=== PATIENT | male | born 1935 | race Caucasian/White ===

== ENCOUNTER 2016-12-18 11:30 | Inpatient (IN) | payer MEDICARE, BC ==
--- NOTE | 2016-12-18 12:25 | EDM.PDOC ---
ED HPI GENERAL MEDICAL PROBLEM - General Chief Complaint: General Stated Complaint: PAIN ABOVE HIS HEART Time Seen by Provider: 12/18/16 12:09 Source of Information: Reports: Patient, Family, RN Notes Reviewed History Limitations: Reports: No Limitations - History of Present Illness INITIAL COMMENTS - FREE TEXT/NARRATIVE: 81-year-old gentleman presents to the emergency department today with complaint of left shoulder pain/chest pain, he states been pain has been going on for the last 2-3 weeks it has remained constant nature when he is at rest he has no pain the pain is exacerbated by position and with a deep breath, he has not tried anything to alleviate the pain he describes it as a sharp pain may be 6 out of 10 abdominal resolved to 0 Left Chest Pain Score (Numeric/FACES): 4 - Related Data Allergies Allergy/AdvReac Type Severity Reaction Status Date / Time No Known Allergies Allergy Verified 12/18/16 11:51 Home Meds: Home Meds NK [No Known Home Meds] 12/18/16 [History] Past Medical History HEENT History: Reports: Hard of Hearing, Impaired Vision Musculoskeletal History: Reports: Other (See Below) Other Musculoskeletal History: facial bones Neurological History: Reports: Alzheimers Disease, Concussion Psychiatric History: Reports: Alzheimers Disease, Anxiety, Depression - Infectious Disease History Infectious Disease History: Reports: Chicken Pox, Measles, Shingles Social & Family History - Tobacco Use Smoking Status *Q: Former Smoker Years of Tobacco use: 15 Packs/Tins Daily: 1 Used Tobacco, but Quit: Yes Month Tobacco Last Used: August Second Hand Smoke Exposure: No - Caffeine Use Caffeine Use: Reports: Coffee, Soda - Alcohol Use Days Per Week of Alcohol Use: 0 - Recreational Drug Use Recreational Drug Use: No ED ROS GENERAL - Review of Systems Review Of Systems: See Below Constitutional: Reports: No Symptoms HEENT: Reports: No Symptoms Respiratory: Reports: No Symptoms Cardiovascular: Reports: Chest Pain (Only with deep breath) GI/Abdominal: Reports: No Symptoms : Reports: No Symptoms Musculoskeletal: Reports: No Symptoms Skin: Reports: No Symptoms Neurological: Reports: No Symptoms Psychiatric: Reports: No Symptoms ED EXAM, GENERAL - Physical Exam Exam: See Below Free Text/Narrative:: General: Male, not in any distress, alert and oriented x3 HEENT: head is atraumatic normocephalic, eyes pupils equal round reactive to light, sclera clear no conjunctivitis appreciated. Ears blocked by cerumen bilaterally canals are clear. Nose no septal deviation, nares are clear, no blood present. Mouth mucosa is moist and pink no erythema or exudate noted in soft palate, tongue is midline uvula is midline, dentures in place. Neck: Supple no thyromegaly no tracheal deviation. Nodes: Cervical nodes subclavicular nodes nontender no palpable lymphadenopathy noted. Lungs: clear to auscultation bilaterally with symmetrical respirations, no adventitious noise appreciated. CV: Regular rate and rhythm S1 and S2 appreciated no murmurs rubs or gallops noted., Chest no tenderness to palpation, cannot reproduce the pain by arm movement, however pain is reproduced with deep breath Abdomen: Soft, nontender, no palpable masses or organomegaly appreciated, no distention no guarding bowel sounds are present,. Neuro: Cranial nerves II through XII grossly intact Skin: Warm and dry, intact Extremities: No lower extremity edema appreciated, Course - Vital Signs Last Recorded V/S: Last Vital Signs Temp 98.8 F 12/18/16 13:25 Pulse 86 12/18/16 13:25 Resp 16 12/18/16 13:25 BP 141/91 H 12/18/16 13:25 Pulse Ox 91 L 12/18/16 13:25 - Orders/Labs/Meds Orders: Active Orders 24 hr Category Date Time Status Cardiac Monitoring [RC] .As Directed Care 12/18/16 12:18 Active EKG Documentation Completion [RC] ASDIRECTED Care 12/18/16 12:18 Active Peripheral IV Care [RC] . DIRECTED Care 12/18/16 13:58 Active VL Duplex Lwr Ext Veins Comp [US] Stat Exams 12/18/16 15:10 Ordered INR,PT,PROTHROMBIN TIME [COAG] Routine Lab 12/18/16 15:11 Ordered Heparin Sodium/D5W [Heparin 25,000 Units in D5W 500 ML] Med 12/18/16 15:15 Ordered 25,000 units in 500 ml IV TITRATE Heparin Sodium/D5W [Heparin 25,000 Units in D5W 500 ML] Med 12/18/16 15:15 Ordered 25,000 units in 500 ml IV TITRATE Sodium Chloride 0.9% [Normal Saline] 1,000 ml Med 12/18/16 14:00 Active IV ASDIRECTED Sodium Chloride 0.9% [Saline Flush] Med 12/18/16 13:58 Active 10 ml FLUSH ASDIRECTED PRN Peripheral IV Insertion Adult [OM.PC] Urgent Oth 12/18/16 13:58 Ordered EKG 12 Lead [EK] Stat Ther 12/18/16 12:18 Ordered Medication Orders Sodium Chloride (Normal Saline) 1,000 mls @ 500 mls/hr IV ASDIRECTED WINDY Last Admin: 12/18/16 14:09 Dose: 500 mls/hr Heparin Sodium/Dextrose (Heparin 25,000 Units In D5w 500 Ml) 25,000 units in 500 mls @ 0 mls/hr IV TITRATE WINDY; 18 UNITS/KG/HR PRN Reason: Protocol Heparin Sodium/Dextrose (Heparin 25,000 Units In D5w 500 Ml) 25,000 units in 500 mls @ 0 mls/hr IV TITRATE WINDY; KVO PRN Reason: Protocol Sodium Chloride (Saline Flush) 10 ml FLUSH ASDIRECTED PRN PRN Reason: Keep Vein Open Labs: Laboratory Tests 12/18/16 12/18/16 Range/Units 12:25 12:25 WBC 11.3 H (4.5-11.0) K/uL RBC 5.31 (4.30-5.90) M/uL Hgb 15.6 H (12.0-15.0) g/dL Hct 47.0 (40.0-54.0) % MCV 89 (80-98) fL MCH 29 (27-31) pg MCHC 33 (32-36) % Plt Count 243 (150-400) K/uL Neut % (Auto) 75 H (36-66) % Lymph % (Auto) 12 L (24-44) % [place] % (Auto) 12 H (2-6) % Eos % (Auto) 1 L (2-4) % Baso % (Auto) 0 (0-1) % Sodium 137 L (140-148) mmol/L Potassium 4.1 (3.6-5.2) mmol/L Chloride 103 (100-108) mmol/L Carbon Dioxide 26 (21-32) mmol/L Anion Gap 12.1 (5.0-14.0) mmol/L BUN 16 (7-18) mg/dL Creatinine 1.0 (0.8-1.3) mg/dL Est Cr Clr Drug Dosing 54.15 mL/min Estimated GFR (MDRD) > 60 (>60) Glucose 93 (74-106) mg/dL Calcium 8.6 (8.5-10.1) mg/dL Total Bilirubin 1.5 H (0.2-1.0) mg/dL AST 29 (15-37) U/L ALT 35 (12-78) U/L Alkaline Phosphatase 110 (46-116) U/L Troponin I < 0.017 (0.000-0.056) ng/mL Total Protein 7.0 (6.4-8.2) g/dL Albumin 2.8 L (3.4-5.0) g/dL Globulin 4.2 H (2.3-3.5) g/dL Albumin/Globulin Ratio 0.7 L (1.2-2.2) Meds: Medications Generic Name Dose Route Start Last Admin Trade Name Freq PRN Reason Stop Dose Admin Sodium Chloride 1,000 mls @ 500 mls/hr 12/18/16 14:00 12/18/16 14:09 Normal Saline IV 500 mls/hr ASDIRECTED WINDY Administration Heparin Sodium/Dextrose 25,000 units in 500 mls @ 0 mls/hr 12/18/16 15:15 Heparin 25,000 Units In D5w 500 Ml IV TITRATE WINDY Protocol 18 UNITS/KG/HR Heparin Sodium/Dextrose 25,000 units in 500 mls @ 0 mls/hr 12/18/16 15:15 Heparin 25,000 Units In D5w 500 Ml IV TITRATE WINDY Protocol KVO Sodium Chloride 10 ml 12/18/16 13:58 Saline Flush FLUSH ASDIRECTED PRN Keep Vein Open Discontinued Medications Generic Name Dose Route Start Last Admin Trade Name Freq PRN Reason Stop Dose Admin Heparin Sodium (Porcine) 4,000 units 12/18/16 15:10 Heparin Sodium IVPUSH 12/18/16 15:11 ONETIME ONE Sodium Chloride 75 mls @ 3 mls/sec 12/18/16 14:15 12/18/16 14:18 Normal Saline IV 12/18/16 15:00 3 mls/sec ASDIRECTED WINDY Administration Iopamidol 100 ml 12/18/16 14:06 12/18/16 14:18 Isovue-300 (61%) IV 12/18/16 15:00 100 ml . DIRECTED PRN Administration RADIOLOGY EXAM Warfarin Sodium 5 mg 12/18/16 15:10 Coumadin PO 12/18/16 15:11 ONETIME ONE Departure - Departure Time of Disposition: 15:17 Disposition: Admitted As Inpatient 64 Clinical Impression: Bilateral pulmonary embolism - Discharge Information Referrals: PCP,None [Primary Care Provider] - Forms: ED Department Discharge - My Orders Last 24 Hours: My Active Orders 12/18/16 12:18 Cardiac Monitoring [RC] .As Directed EKG Documentation Completion [RC] ASDIRECTED EKG 12 Lead [EK] Stat 12/18/16 13:58 Peripheral IV Care [RC] . DIRECTED Sodium Chloride 0.9% [Saline Flush] 10 ml FLUSH ASDIRECTED PRN Peripheral IV Insertion Adult [OM.PC] Urgent 12/18/16 14:00 Sodium Chloride 0.9% [Normal Saline] 1,000 ml IV ASDIRECTED 12/18/16 15:10 VL Duplex Lwr Ext Veins Comp [US] Stat 12/18/16 15:11 INR,PT,PROTHROMBIN TIME [COAG] Routine 12/18/16 15:15 Heparin Sodium/D5W [Heparin 25,000 Units in D5W 500 ML] 25,000 units in 500 ml IV TITRATE - Assessment/Plan Last 24 Hours: My Active Orders 12/18/16 12:18 Cardiac Monitoring [RC] .As Directed EKG Documentation Completion [RC] ASDIRECTED EKG 12 Lead [EK] Stat 12/18/16 13:58 Peripheral IV Care [RC] . DIRECTED Sodium Chloride 0.9% [Saline Flush] 10 ml FLUSH ASDIRECTED PRN Peripheral IV Insertion Adult [OM.PC] Urgent 12/18/16 14:00 Sodium Chloride 0.9% [Normal Saline] 1,000 ml IV ASDIRECTED 12/18/16 15:10 VL Duplex Lwr Ext Veins Comp [US] Stat 12/18/16 15:11 INR,PT,PROTHROMBIN TIME [COAG] Routine 12/18/16 15:15 Heparin Sodium/D5W [Heparin 25,000 Units in D5W 500 ML] 25,000 units in 500 ml IV TITRATE Plan: Assessment Acuity = acute Site and laterality = bilateral pulmonary embolism Etiology = unclear etiology Manifestations = inspiratory chest pain Location of injury = Home Lab values = 6 WBC elevated 11.3 consistent with leukocytosis sodium low at 137 consistent hyponatremia total bilirubin elevated 1.5 consistent hyperbilirubinemia albumin low at 2.[address] scan shows bilateral pulmonary embolism please see report for details EKG demonstrates a sinus rhythm with left axis deviation Plan Called and discussed case with hospitalist cost reduction engineer he agreed to, and evaluate the patient in the emergency department for admission, heparin warfarin started in the ED ultrasound of lower extremities also ordered Patient was in agreement with the plan all questions were answered, they were instructed to return to the emergency department or call for worsening symptoms. This note was dictated using [employer] voice recognition software please call with any questions.
--- NOTE | 2016-12-18 13:47 | CR ---
Chest 2V HISTORY: Chest Pain COMPARISON: None FINDINGS: Lungs appear clear and normally aerated. Heart size is within normal limits. Atherosclerotic, ectatic , mildly tortuous thoracic aorta is noted. Apparent fullness to the left hilum seen on the PA view is not appreciated on the lateral view and may represent artifact from superimposition with the ectatic descending thoracic aorta. No vascular redistribution or pleural fluid can be seen. There are mild d egenerative changes thoracic spine.. IMPRESSION: Questionable fullness to the left hilum seen only on the PA view may be artifact due to superimpositi on of hilar structures with ectatic, tortuous descending thoracic aorta. Hilar mass or adenopathy is felt to be less likely but cannot be entirely excluded. Further workup is desired, contrasted CT ches t could be obtained.
[2016-12-18] MEDS ORDERED: Sodium Chloride 0.9% 10 ML Syringe FLUSH PRN ×2 (13:58→16:54)
[2016-12-18] MEDS ORDERED: Sodium Chloride 0.9% 1,000 ML IV SCH ×2 (14:00→16:54)
[2016-12-18] MEDS ORDERED: Iopamidol 612 MG/ML 100 ML Bottle IV PRN (14:06)
[2016-12-18] MEDS ORDERED: Sodium Chloride 0.9% 75 ML IV SCH (14:15)
--- NOTE | 2016-12-18 14:45 | CT ---
Chest w Cont HISTORY: Enlarged hilar area on x-ray Axial spiral enhanced CT scan of the chest was obtained along with sagittal, coronal, and MIP coronal reconstructions. FINDINGS: Filling defect in the distal left main pulmonary artery is consistent with moderate pulmona ry was. Embolus extends into the proximal left lingular pulmonary arteries. There is also a fairly pr ominent embolus left lower lobe. There is atelectasis of the posterior medial aspect left lower lobe distal to this embolus. On the right, pulmonary emboli can be seen in the distal main pulmonary arter y extending into the proximal right upper and middle lobe pulmonary arteries. Mild infiltrates are seen posterior left upper lobe. Early pulmonary infarct is not excluded. This co uld also be atelectasis or early inflammatory infiltrate right lung is clear. There is mild dependent atelectasis posteriorly at both lower lobes. Heart size is within normal limits. I see no hilar or m ediastinal mass or adenopathy. In the upper abdomen, attenuation of the liver is mildly decreased diffusely suggesting fatty infiltr ation. Small cysts can be seen on the left kidney. Left adrenal gland appears normal. There is enlarg ement of the right adrenal gland with possible small low-attenuation adrenal nodule. There is a punct ate calcification right adrenal gland. IMPRESSION: 1. Prominent central pulmonary emboli bilaterally. Possible early pulmonary infarct posterior left up per lobe. There is probable atelectasis posterior medial left lower lobe. 2. Atherosclerotic, tortuous thoracic aorta. No signs of thoracic aortic aneurysm or dissection. 3. Probable fatty infiltration of the liver. 4. Small left renal cysts. 5. Right adrenal nodule is noted. Appearance is indeterminate. This may represent an adrenal adenoma. CT scan of the adrenal glands using adrenal washout protocol could be obtained to further evaluate o n a nonemergent basis. Findings were discussed Officer in the Emergency Department at 1430 hours. Total DLP 325 mGycm
[2016-12-18] MEDS ORDERED: Heparin Sodium 5,000 Units/ML Vial IVPUSH ONE (15:10)
[2016-12-18] MEDS ORDERED: Warfarin 5 MG Tab PO ONE (15:10)
[2016-12-18] MEDS ORDERED: Heparin Sodium/D5W 25,000 UNITS/500 ML BAG IV SCH (15:15)
[2016-12-18] MEDS: Heparin Sodium/D5W 25,000 UNITS/500 ML BAG IV SCH (15:37)
--- NOTE | 2016-12-18 16:22 | PCM.HP ---
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 He apparently was doing well until this morning when he noted onset of pleuritic pain in his left upper chest. Pain was very intense and sharp in nature and would occur with a deep breath. Seem to be worse after he bent over to tie his shoes and set up when he noted more severe pain. There are no other precipitating or relieving factors. On evaluation in the emergency department hilar fullness was noted on chest x-ray some CT scan was obtained. CT scan with PE protocol showed evidence of bilateral pulmonary emboli and a probable area pulmonary infarct in the left lung. Left Chest Pain Score (Numeric/FACES): 4 - Related Data Allergies/Adverse Reactions: Allergies Allergy/AdvReac Type Severity Reaction Status Date / Time No Known Allergies Allergy Verified 12/18/16 11:51 Home Medications: Home Meds NK [No Known Home Meds] 12/18/16 [History] Past Medical History HEENT History: Reports: Hard of Hearing, Impaired Vision Musculoskeletal History: Reports: Other (See Below) Other Musculoskeletal History: facial bones Neurological History: Reports: Alzheimers Disease, Concussion Psychiatric History: Reports: Alzheimers Disease, Anxiety, Depression - Infectious Disease History Infectious Disease History: Reports: Chicken Pox, Measles, Shingles Social & Family History - Tobacco Use Smoking Status *Q: Former Smoker Years of Tobacco use: 15 Packs/Tins Daily: 1 Used Tobacco, but Quit: Yes Month Tobacco Last Used: August Second Hand Smoke Exposure: No - Caffeine Use Caffeine Use: Reports: Coffee, Soda - Alcohol Use Days Per Week of Alcohol Use: 0 - Recreational Drug Use Recreational Drug Use: No H&P Review of Systems - Review of Systems: Review Of Systems: Unable To Obtain General: Reports: ROS unobtainable (Dementia) Exam - Exam Exam: See Below - Vital Signs Vital Signs: Last Vital Signs Temp 98.8 F 12/18/16 13:25 Pulse 86 12/18/16 13:25 Resp 16 12/18/16 13:25 BP 141/91 H 12/18/16 13:25 Pulse Ox 91 L 12/18/16 13:25 Weight: 172 lb 6.424 oz - Exam Quality Assessment: DVT Prophylaxis General: Alert, Cooperative, Mild Distress HEENT: Conjunctiva Clear, Mucosa Moist & [place], Normal Nasal Septum, Posterior Pharynx Clear, Pupils Equal. No: Hearing Intact Neck: Supple, Trachea Midline, +2 Carotid Pulse wo Bruit Lungs: Clear to Auscultation, Normal Respiratory Effort. No: Rub Cardiovascular: Regular Rate, Regular Rhythm, Normal S1, Normal S2. No: Systolic Murmur, Diastolic Murmur GI/Abdominal Exam: Normal Bowel Sounds, Soft, Non-Tender, No Distention Back Exam: Normal Inspection, Full Range of Motion Extremities: Non-Tender, No Pedal Edema Skin: Warm, Dry, Intact Neurological: Cranial Nerves Intact, Strength Equal Bilateral, Normal Speech, Normal Tone, Sensation Intact. No: Focal Deficit Neuro Extensive - Mental Status: Alert, Normal Mood/Affect, Disorientation to Time, Memory Loss-Remote Events, Memory Loss-Recent Events. No: Disorientation to Person, Disorientation to Place - Patient Data Result Diagrams: 12/18/16 12:25 12/18/16 12:25 *Q Meaningful Use (ADM) - VTE *Q VTE Criteria *Q: VTE Pharmacological Contraindications *Q: High INR Value - VTE Risk Assess *Q Each Risk Factor Represents 1 Point: None Total Score 1 Point Risk Factors: 0 Each Risk Factor Represents 2 Points: None Total Score 2 Point Risk Factors: 0 Each Risk Factor Represents 3 Points: Age 75 Years or Greater, History Superficial Venous Thrombosis, DVT or PE Total Score 3 Point Risk Factors: 6 Each Risk Factor Represents 5 Points: None Total Score 5 Point Risk Factors: 0 Venous Thromboembolism Risk Factor Score *Q: 6 - Stroke *Q Stroke Criteria *Q: - AMI *Q AMI Criteria *Q: Problem List Initiated/Reviewed/Updated: Yes Orders Last 24hrs: Active Orders 24 hr Category Date Time Status Resuscitation Status Routine Resus Stat 12/18/16 15:31 Ordered Medication Orders Sodium Chloride (Normal Saline) 1,000 mls @ 500 mls/hr IV ASDIRECTED WINDY Last Admin: 12/18/16 14:09 Dose: 500 mls/hr Heparin Sodium/Dextrose (Heparin 25,000 Units In D5w 500 Ml) 25,000 units in 500 mls @ 0 mls/hr IV TITRATE WINDY; 18 UNITS/KG/HR PRN Reason: Protocol Last Admin: 12/18/16 15:37 Dose: 16.62 units/kg/hr, 26 mls/hr Sodium Chloride (Saline Flush) 10 ml FLUSH ASDIRECTED PRN PRN Reason: Keep Vein Open Assessment/Plan Comment:: ASSESSMENT AND PLAN BILATERAL CENTRAL PULMONARY EMBOLI-main symptom associated with this his pleuritic chest pain, he denies significant shortness of breath in his oxygenation has been adequate. There is been no recent prolonged periods of immobility and he has no previous history of thrombotic disease. No family history of coagulation abnormalities. He is hemodynamically stable, with no evidence of significant right heart failure. -Anticoagulation with IV heparin -Initiate warfarin therapy -INR in a.m. 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 At the time of this admission I do not reasonably expected evaluation and management of this problem will require more than a 96 hour hospital stay. DISPOSITION-anticipate discharge to home after the hospital stay. PRIMARY CARE PROVIDER-
[2016-12-18] MEDS ORDERED: Magnesium Hydroxide 400 MG/5 ML Susp 30 ML Cup PO PRN (16:54)
[2016-12-18] MEDS ORDERED: Acetaminophen 325 MG Tab PO PRN (16:54)
[2016-12-18] MEDS ORDERED: Ondansetron 4 MG/2 ML SDV IV PRN (16:54)
[2016-12-18] MEDS ORDERED: oxyCODONE 5 MG Tab PO PRN (16:54)
[2016-12-18] MEDS ORDERED: Albuterol 0.083% 2.5 MG/3 ML Neb Soln NEB PRN (16:54)
[2016-12-18] MEDS: Melatonin 3 MG Tab PO SCH ×2 (17:48→21:09)
--- NOTE | 2016-12-19 08:50 | US ---
VL Duplex Lwr Ext Veins Comp HISTORY: chantal PE FINDINGS: Right leg demonstrates lack of blood flow and noncompressibility in the mid to distal femoral vein an d in the popliteal vein consistent with DVT. No thrombus is seen throughout the remainder of the righ t leg. Left leg demonstrates lack of blood flow and noncompressibility in the common femoral vein and proxim al femoral vein consistent with DVT. No thrombus is seen in the remainder of the left lower extremity . IMPRESSION: Bilateral lower extremity deep venous thrombosis as above. Preliminary report was given t o the emergency department at the time of the exam.
--- NOTE | 2016-12-19 09:43 | PCM.PN ---
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 No difficulty thus far with oxygenation, saturations are good on room air. He reports that his chest pain is totally resolved and denies significant discomfort. - Patient Data Vitals - Most Recent: Last Vital Signs Temp 97.2 F 12/19/16 08:00 Pulse 73 12/19/16 08:00 Resp 24 H 12/19/16 08:00 BP 123/85 12/19/16 08:00 Pulse Ox 92 L 12/19/16 08:00 Weight - Most Recent: 178 lb 14.411 oz I&O - Last 24 Hours: Intake & Output 12/18/16 12/19/16 12/19/16 22:59 06:59 14:59 Intake Total 650 1338 480 Output Total 150 200 Balance 500 1138 480 Lab Results Last 24 Hours: Laboratory Results - last 24 hr 12/18/16 12/19/16 12/19/16 Range/Units 22:05 04:50 04:57 WBC 8.9 (4.5-11.0) K/uL RBC 4.61 (4.30-5.90) M/uL Hgb 13.6 D (12.0-15.0) g/dL Hct 40.8 (40.0-54.0) % MCV 89 (80-98) fL MCH 30 (27-31) pg MCHC 33 (32-36) % Plt Count 229 (150-400) K/uL Neut % (Auto) 68 H (36-66) % Lymph % (Auto) 16 L (24-44) % [place] % (Auto) 14 H (2-6) % Eos % (Auto) 2 (2-4) % Baso % (Auto) 0 (0-1) % PT (9.5-12.0) sec INR (0.80-1.20) APTT 53.3 H 53.4 H (27.0-36.0) sec Sodium (140-148) mmol/L Potassium (3.6-5.2) mmol/L Chloride (100-108) mmol/L Carbon Dioxide (21-32) mmol/L Anion Gap (5.0-14.0) mmol/L BUN (7-18) mg/dL Creatinine (0.8-1.3) mg/dL Est Cr Clr Drug Dosing Estimated GFR (MDRD) (>60) Glucose (74-106) mg/dL Calcium (8.5-10.1) mg/dL Magnesium (1.8-2.4) mg/dL 12/19/16 12/19/16 Range/Units 04:57 04:57 WBC (4.5-11.0) K/uL RBC (4.30-5.90) M/uL Hgb (12.0-15.0) g/dL Hct (40.0-54.0) % MCV (80-98) fL MCH (27-31) pg MCHC (32-36) % Plt Count (150-400) K/uL Neut % (Auto) (36-66) % Lymph % (Auto) (24-44) % [place] % (Auto) (2-6) % Eos % (Auto) (2-4) % Baso % (Auto) (0-1) % PT 11.5 (9.5-12.0) sec INR 1.07 (0.80-1.20) APTT (27.0-36.0) sec Sodium 139 L (140-148) mmol/L Potassium 3.7 (3.6-5.2) mmol/L Chloride 106 (100-108) mmol/L Carbon Dioxide 25 (21-32) mmol/L Anion Gap 11.7 (5.0-14.0) mmol/L BUN 16 (7-18) mg/dL Creatinine 0.8 (0.8-1.3) mg/dL Est Cr Clr Drug Dosing TNP Estimated GFR (MDRD) > 60 (>60) Glucose 97 (74-106) mg/dL Calcium 7.8 L (8.5-10.1) mg/dL Magnesium 1.9 (1.8-2.4) mg/dL Med Orders - Current: Current Medications Acetaminophen (Tylenol) 650 mg PO Q4H PRN PRN Reason: Pain (Mild 1-3)/fever Albuterol (Proventil Neb Soln) 2.5 mg NEB Q4H PRN PRN Reason: Shortness Of Breath/wheezing Docusate Sodium (Colace) 100 mg PO BID PRN PRN Reason: Constipation Heparin Sodium/Dextrose (Heparin 25,000 Units In D5w 500 Ml) 25,000 units in 500 mls @ 0 mls/hr IV TITRATE WINDY; 18 UNITS/KG/HR PRN Reason: Protocol Last Admin: 12/18/16 15:37 Dose: 16.62 units/kg/hr, 26 mls/hr Magnesium Hydroxide (Milk Of Magnesia) 30 ml PO Q12H PRN PRN Reason: Constipation Melatonin (Melatonin) 9 mg PO BEDTIME WINDY Last Admin: 12/18/16 21:09 Dose: 9 mg Ondansetron HCl (Zofran) 4 mg IV Q4H PRN PRN Reason: Nausea/Vomiting Oxycodone HCl (Oxycodone) 5 mg PO Q4H PRN PRN Reason: Pain (moderate 4-6) Polyethylene Glycol (Miralax) 17 gm PO DAILY PRN PRN Reason: Constipation Sodium Chloride (Saline Flush) 10 ml FLUSH ASDIRECTED PRN PRN Reason: Keep Vein Open Warfarin Sodium (Coumadin) 7.5 mg PO ONETIME ONE Stop: 12/19/16 11:01 Discontinued Medications Heparin Sodium (Porcine) (Heparin Sodium) 4,000 units IVPUSH ONETIME ONE Stop: 12/18/16 15:11 Last Admin: 12/18/16 15:26 Dose: 4,000 units Sodium Chloride (Normal Saline) 1,000 mls @ 500 mls/hr IV ASDIRECTED WINDY Last Admin: 12/18/16 14:09 Dose: 500 mls/hr Sodium Chloride (Normal Saline) 75 mls @ 3 mls/sec IV ASDIRECTED WINDY Stop: 12/18/16 15:00 Last Admin: 12/18/16 14:18 Dose: 3 mls/sec Sodium Chloride (Normal Saline) 1,000 mls @ 75 mls/hr IV ASDIRECTED WINDY Last Admin: 12/19/16 05:49 Dose: 75 mls/hr Iopamidol (Isovue-300 (61%)) 100 ml IV . DIRECTED PRN PRN Reason: RADIOLOGY EXAM Stop: 12/18/16 15:00 Last Admin: 12/18/16 14:18 Dose: 100 ml Sodium Chloride (Saline Flush) 10 ml FLUSH ASDIRECTED PRN PRN Reason: Keep Vein Open Warfarin Sodium (Coumadin) 5 mg PO ONETIME ONE Stop: 12/18/16 15:11 Last Admin: 12/18/16 15:25 Dose: 5 mg - Exam Quality Assessment: DVT Prophylaxis General: Alert, Cooperative, No Acute Distress Lungs: Clear to Auscultation, Normal Respiratory Effort Cardiovascular: Regular Rate, Regular Rhythm, No Murmurs GI/Abdominal Exam: Normal Bowel Sounds, Soft, Non-Tender, No Organomegaly, No Distention Extremities: Non-Tender, No Pedal Edema Skin: Warm, Dry, Intact - Problem List Review Problem List Initiated/Reviewed/Updated: Yes - My Orders Last 24 Hours: My Active Orders 12/18/16 15:31 Resuscitation Status Routine 12/18/16 16:54 Patient Status [ADT] Routine Intake and Output [RC] QSHIFT Notify Provider Vital Signs [RC] ASDIRECTED Oxygen Therapy [RC] PRN Peripheral IV Care [RC] . DIRECTED RT Aerosol Therapy [RC] ASDIRECTED Up With Assistance [RC] ASDIRECTED Up to Chair [RC] QID Vital Signs [RC] Q4H Acetaminophen [Tylenol] 650 mg PO Q4H PRN Albuterol [Proventil Neb Soln] 2.5 mg NEB Q4H PRN Docusate Sodium [Colace] 100 mg PO BID PRN Magnesium Hydroxide [Milk of Magnesia] 30 ml PO Q12H PRN Melatonin 9 mg PO BEDTIME Ondansetron [Zofran] 4 mg IV Q4H PRN Polyethylene Glycol 3350 [MiraLAX] 17 gm PO DAILY PRN Sodium Chloride 0.9% [Saline Flush] 10 ml FLUSH ASDIRECTED PRN oxyCODONE 5 mg PO Q4H PRN Peripheral IV Insertion Adult [OM.PC] Routine VTE Pharmacological Contraindications [AST] Per Unit Routine 12/18/16 Lunch Regular Diet [DIET] 12/19/16 09:38 Patient Status Manage Transfer [TRANSFER] Routine Convert IV to Saline Lock [OM.PC] Routine 12/19/16 11:00 Warfarin [Coumadin] 7.5 mg PO ONETIME ONE 12/20/16 05:00 CBC WITH AUTO DIFF [HEME] Timed PTT,PARTIAL THROMBOPLSTIN TIME [COAG] Routine 12/20/16 05:11 INR,PT,PROTHROMBIN TIME [COAG] AM - Plan Plan:: ASSESSMENT AND PLAN BILATERAL CENTRAL PULMONARY EMBOLI-third of chest pain has resolved since admission and he has remained hemodynamically stable with good oxygenation. Venous Doppler studies lower extremities documented bilateral DVT. -Anticoagulation with IV heparin -Warfarin 7.5 mg by mouth today -INR in a.m. 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 At the time of this admission I do not reasonably expected evaluation and management of this problem will require more than a 96 hour hospital stay. DISPOSITION-anticipate discharge to home after the hospital stay. PRIMARY CARE PROVIDER-
[2016-12-19] MEDS: Heparin Sodium/D5W 25,000 UNITS/500 ML BAG IV SCH (10:19)
[2016-12-19] MEDS ORDERED: Warfarin 2.5 MG Tab PO ONE (11:00)
[2016-12-19] MEDS: Melatonin 3 MG Tab PO SCH (21:14)
[2016-12-20] MEDS: Heparin Sodium/D5W 25,000 UNITS/500 ML BAG IV SCH (05:42)
[2016-12-20] MEDS: Polyethylene Glycol 3350 Powder 17 GM Packet PO PRN (08:34)
--- NOTE | 2016-12-20 14:37 | PCM.PN ---
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 Vital signs have been stable and he has remained afebrile. - Patient Data Vitals - Most Recent: Last Vital Signs Temp 98.3 F 12/20/16 11:28 Pulse 72 12/20/16 11:28 Resp 16 12/20/16 11:28 BP 129/75 12/20/16 11:28 Pulse Ox 93 L 12/20/16 11:28 Weight - Most Recent: 178 lb 14.411 oz I&O - Last 24 Hours: Intake & Output 12/19/16 12/20/16 12/20/16 22:59 06:59 14:59 Intake Total 1069 580 360 Output Total 385 Balance 1069 195 360 Lab Results Last 24 Hours: Laboratory Results - last 24 hr 12/20/16 12/20/16 12/20/16 Range/Units 05:30 06:00 06:00 WBC 7.6 (4.5-11.0) K/uL RBC 4.66 (4.30-5.90) M/uL Hgb 13.8 (12.0-15.0) g/dL Hct 41.1 (40.0-54.0) % MCV 88 (80-98) fL MCH 30 (27-31) pg MCHC 34 (32-36) % Plt Count 253 (150-400) K/uL Neut % (Auto) 63 (36-66) % Lymph % (Auto) 20 L (24-44) % [place] % (Auto) 12 H (2-6) % Eos % (Auto) 5 H (2-4) % Baso % (Auto) 0 (0-1) % PT 11.9 (9.5-12.0) sec INR 1.11 (0.80-1.20) APTT 54.6 H (27.0-36.0) sec Med Orders - Current: Current Medications Acetaminophen (Tylenol) 650 mg PO Q4H PRN PRN Reason: Pain (Mild 1-3)/fever Albuterol (Proventil Neb Soln) 2.5 mg NEB Q4H PRN PRN Reason: Shortness Of Breath/wheezing Docusate Sodium (Colace) 100 mg PO BID PRN PRN Reason: Constipation Heparin Sodium/Dextrose (Heparin 25,000 Units In D5w 500 Ml) 25,000 units in 500 mls @ 0 mls/hr IV TITRATE WINDY; 18 UNITS/KG/HR PRN Reason: Protocol Last Admin: 12/20/16 05:42 Dose: 16.62 units/kg/hr, 26 mls/hr Magnesium Hydroxide (Milk Of Magnesia) 30 ml PO Q12H PRN PRN Reason: Constipation Melatonin (Melatonin) 9 mg PO BEDTIME WINDY Last Admin: 12/19/16 21:14 Dose: 9 mg Ondansetron HCl (Zofran) 4 mg IV Q4H PRN PRN Reason: Nausea/Vomiting Oxycodone HCl (Oxycodone) 5 mg PO Q4H PRN PRN Reason: Pain (moderate 4-6) Polyethylene Glycol (Miralax) 17 gm PO DAILY PRN PRN Reason: Constipation Last Admin: 12/20/16 08:34 Dose: 17 gm Sodium Chloride (Saline Flush) 10 ml FLUSH ASDIRECTED PRN PRN Reason: Keep Vein Open Discontinued Medications Heparin Sodium (Porcine) (Heparin Sodium) 4,000 units IVPUSH ONETIME ONE Stop: 12/18/16 15:11 Last Admin: 12/18/16 15:26 Dose: 4,000 units Sodium Chloride (Normal Saline) 1,000 mls @ 500 mls/hr IV ASDIRECTED WINDY Last Admin: 12/18/16 14:09 Dose: 500 mls/hr Sodium Chloride (Normal Saline) 75 mls @ 3 mls/sec IV ASDIRECTED WINDY Stop: 12/18/16 15:00 Last Admin: 12/18/16 14:18 Dose: 3 mls/sec Sodium Chloride (Normal Saline) 1,000 mls @ 75 mls/hr IV ASDIRECTED WINDY Last Admin: 12/19/16 05:49 Dose: 75 mls/hr Iopamidol (Isovue-300 (61%)) 100 ml IV . DIRECTED PRN PRN Reason: RADIOLOGY EXAM Stop: 12/18/16 15:00 Last Admin: 12/18/16 14:18 Dose: 100 ml Sodium Chloride (Saline Flush) 10 ml FLUSH ASDIRECTED PRN PRN Reason: Keep Vein Open Warfarin Sodium (Coumadin) 5 mg PO ONETIME ONE Stop: 12/18/16 15:11 Last Admin: 12/18/16 15:25 Dose: 5 mg Warfarin Sodium (Coumadin) 7.5 mg PO ONETIME ONE Stop: 12/19/16 11:01 Last Admin: 12/19/16 10:53 Dose: 7.5 mg - Exam Quality Assessment: DVT Prophylaxis General: Alert, Cooperative, No Acute Distress Lungs: Clear to Auscultation, Normal Respiratory Effort Cardiovascular: Regular Rate, Regular Rhythm, No Murmurs GI/Abdominal Exam: Normal Bowel Sounds, Soft, Non-Tender, No Organomegaly, No Distention Extremities: Non-Tender, No Pedal Edema Skin: Warm, Dry, Intact - Problem List Review Problem List Initiated/Reviewed/Updated: Yes - My Orders Last 24 Hours: My Active Orders 12/20/16 14:33 Warfarin [Coumadin] 10 mg PO ONETIME ONE 12/21/16 05:11 INR,PT,PROTHROMBIN TIME [COAG] AM 12/21/16 06:00 PTT,PARTIAL THROMBOPLSTIN TIME [COAG] Routine - Plan Plan:: ASSESSMENT AND PLAN BILATERAL CENTRAL PULMONARY- pleuritic chest pain has resolved since admission, he denies significant shortness of breath. INR remains subtherapeutic despite 2 days of warfarin -Discontinue IV heparin -Warfarin 10 mg by mouth today -INR in a.m. 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 At the time of this admission I do not reasonably expected evaluation and management of this problem will require more than a 96 hour hospital stay. DISPOSITION-anticipate discharge to home tomorrow PRIMARY CARE PROVIDER-
[2016-12-20] MEDS ORDERED: Enoxaparin 80 MG/0.8 ML Syringe SUBCUT SCH ×2 (14:45)
[2016-12-20] MEDS ORDERED: Warfarin 5 MG Tab PO ONE (15:00)
[2016-12-20] MEDS ORDERED: Enoxaparin 120 MG/0.8 ML Syringe SUBCUT SCH (15:30)
[2016-12-20] MEDS: Melatonin 3 MG Tab PO SCH (20:53)
[2016-12-20] MEDS: Docusate Sodium 100 MG Cap PO PRN (20:56)
[2016-12-21] MEDS: Polyethylene Glycol 3350 Powder 17 GM Packet PO PRN (05:35)
[2016-12-21] MEDS: Docusate Sodium 100 MG Cap PO PRN (05:35)
[2016-12-21 11:22] VITALS: BP 132/74
[2016-12-21] MEDS ORDERED: Enoxaparin 120 MG/0.8 ML Syringe SUBCUT SCH (12:00)
[2016-12-21] MEDS ORDERED: Warfarin 5 MG Tab PO ONE (12:00)
--- NOTE | 2016-12-21 13:20 | PCM.DCSUM1 ---
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 - Discharge Data Discharge Date: 12/21/16 Discharge Disposition: Home, W Home Health Agency 06 Condition: Fair - Discharge Diagnosis/Problem(s) (1) DVT of axillary vein, acute bilateral SNOMED Code(s): 223797318044927 ICD Code: I82.A13 - ACUTE EMBOLISM AND THROMBOSIS OF AXILLARY VEIN, BILATERAL Status: Acute Current Visit: Yes (2) DVT of axillary vein, chronic bilateral SNOMED Code(s): 563966271 ICD Code: I82.A23 - CHRONIC EMBOLISM AND THROMBOSIS OF AXILLARY VEIN, BILATERAL Status: Acute Current Visit: Yes (3) Chest pain SNOMED Code(s): 88780622 ICD Code: R07.9 - CHEST PAIN, UNSPECIFIED Status: Acute Current Visit: Yes (4) Bilateral pulmonary embolism SNOMED Code(s): 58352121, 42090557 ICD Code: I26.99 - OTHER PULMONARY EMBOLISM WITHOUT ACUTE COR PULMONALE Status: Acute Current Visit: Yes (5) Alzheimer disease SNOMED Code(s): 23124361 ICD Code: G30.9 - ALZHEIMER'S DISEASE, UNSPECIFIED Status: Chronic Current Visit: No - Patient Summary/Data Hospital Course: 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 He presented to the emergency department for further evaluation, denied shortness of breath. Vital signs were stable and he had adequate oxygenation on room air. Chest x- ray showed some evidence of hilar prominence, CT scan of the chest with PE protocol was obtained and showed evidence of bilateral central pulmonary emboli. He has had no previous history of hypercoagulable state pulmonary emboli or deep vein thrombosis. On admission he was started on IV heparin per protocol and also started on oral anticoagulation with warfarin. After 2 days of IV heparin he was converted to Lovenox 120 mg subcutaneous daily. After 4 days of warfarin, doses of 5, 7.5, 10, and 10 mg his INR remained subtherapeutic at 1.56. He is remained entirely stable throughout his hospital stay with no symptoms of shortness of breath hypoxia or hemodynamic instability. He will be discharged home on Lovenox 120 mg subcutaneous daily to be continued until 2 days after his INR becomes therapeutic. He will remain on warfarin and have daily INRs checked until his INR is within therapeutic range. Activity will be as tolerated and he will resume his usual diet. Follow-up appointment will be scheduled with his primary care provider within one week. Consideration should be given to evaluation of hypercoagulable state, this should be deferred until he is off of warfarin for a few weeks. - Patient Instructions Diet: Usual Diet as Tolerated Activity: As Tolerated Other/Special Instructions: Home care follow-up after discharge. Daily INR until level is within therapeutic range. Continue Lovenox injections for 2 days after INR becomes therapeutic. Schedule follow-up appointment with primary care within 1 week. Please schedule follow-up of anticoagulation in the Coumadin clinic. - Discharge Plan Prescriptions/Med Rec: Enoxaparin [Lovenox] 120 mg SUBCUT Q24H #4 syringe Warfarin [Coumadin] 2.5 mg PO DAILY #120 tablet Home Medications: Home Meds Enoxaparin [Lovenox] 120 mg SUBCUT Q24H #4 syringe 12/21/16 [Rx] Warfarin [Coumadin] 2.5 mg PO DAILY #120 tablet 12/21/16 [Rx] Patient Handouts: Warfarin: What You Need to Know, Warfarin Coagulopathy, Enoxaparin injection, Pulmonary Embolism, Deep Vein Thrombosis - Patient Data Vitals - Most Recent: Last Vital Signs Temp 98.3 F 12/21/16 11:18 Pulse 80 12/21/16 11:18 Resp 16 12/21/16 11:18 BP 132/74 12/21/16 11:18 Pulse Ox 94 L 12/21/16 11:18 Weight - Most Recent: 178 lb 14.411 oz I&O - Last 24 hours: Intake & Output 12/20/16 12/21/16 12/21/16 22:59 06:59 14:59 Intake Total 240 470 300 Balance 240 470 300 Lab Results - Last 24 hrs: Laboratory Results - last 24 hr 12/21/16 Range/Units 05:57 PT 17.0 H (9.5-12.0) sec INR 1.56 H (0.80-1.20) Med Orders - Current: Current Medications Acetaminophen (Tylenol) 650 mg PO Q4H PRN PRN Reason: Pain (Mild 1-3)/fever Albuterol (Proventil Neb Soln) 2.5 mg NEB Q4H PRN PRN Reason: Shortness Of Breath/wheezing Docusate Sodium (Colace) 100 mg PO BID PRN PRN Reason: Constipation Last Admin: 12/21/16 05:35 Dose: 100 mg Enoxaparin Sodium (Lovenox) 120 mg SUBCUT Q24H WINDY Last Admin: 12/21/16 12:56 Dose: 120 mg Magnesium Hydroxide (Milk Of Magnesia) 30 ml PO Q12H PRN PRN Reason: Constipation Last Admin: 12/21/16 05:35 Dose: 30 ml Melatonin (Melatonin) 9 mg PO BEDTIME WINDY Last Admin: 12/20/16 20:53 Dose: 9 mg Ondansetron HCl (Zofran) 4 mg IV Q4H PRN PRN Reason: Nausea/Vomiting Oxycodone HCl (Oxycodone) 5 mg PO Q4H PRN PRN Reason: Pain (moderate 4-6) Polyethylene Glycol (Miralax) 17 gm PO DAILY PRN PRN Reason: Constipation Last Admin: 12/21/16 05:35 Dose: 17 gm Sodium Chloride (Saline Flush) 10 ml FLUSH ASDIRECTED PRN PRN Reason: Keep Vein Open Discontinued Medications Enoxaparin Sodium (Lovenox) 120 mg SUBCUT Q24H WINDY Last Admin: 12/20/16 16:38 Dose: 120 mg Heparin Sodium (Porcine) (Heparin Sodium) 4,000 units IVPUSH ONETIME ONE Stop: 12/18/16 15:11 Last Admin: 12/18/16 15:26 Dose: 4,000 units Sodium Chloride (Normal Saline) 1,000 mls @ 500 mls/hr IV ASDIRECTED WINDY Last Admin: 12/18/16 14:09 Dose: 500 mls/hr Sodium Chloride (Normal Saline) 75 mls @ 3 mls/sec IV ASDIRECTED WINDY Stop: 12/18/16 15:00 Last Admin: 12/18/16 14:18 Dose: 3 mls/sec Heparin Sodium/Dextrose (Heparin 25,000 Units In D5w 500 Ml) 25,000 units in 500 mls @ 0 mls/hr IV TITRATE WINDY; 18 UNITS/KG/HR PRN Reason: Protocol Last Admin: 12/20/16 05:42 Dose: 16.62 units/kg/hr, 26 mls/hr Sodium Chloride (Normal Saline) 1,000 mls @ 75 mls/hr IV ASDIRECTED [facility] Last Admin: 12/19/16 05:49 Dose: 75 mls/hr Iopamidol (Isovue-300 (61%)) 100 ml IV . DIRECTED PRN PRN Reason: RADIOLOGY EXAM Stop: 12/18/16 15:00 Last Admin: 12/18/16 14:18 Dose: 100 ml Sodium Chloride (Saline Flush) 10 ml FLUSH ASDIRECTED PRN PRN Reason: Keep Vein Open Warfarin Sodium (Coumadin) 5 mg PO ONETIME ONE Stop: 12/18/16 15:11 Last Admin: 12/18/16 15:25 Dose: 5 mg Warfarin Sodium (Coumadin) 7.5 mg PO ONETIME ONE Stop: 12/19/16 11:01 Last Admin: 12/19/16 10:53 Dose: 7.5 mg Warfarin Sodium (Coumadin) 10 mg PO ONETIME ONE Stop: 12/20/16 15:01 Last Admin: 12/20/16 16:38 Dose: 10 mg Warfarin Sodium (Coumadin) 10 mg PO ONETIME ONE Stop: 12/21/16 12:01 Last Admin: 12/21/16 12:54 Dose: 10 mg *Q Meaningful Use (DIS) - VTE *Q VTE Criteria *Q: VTE Pharmacological Contraindications *Q: High INR Value - Stroke *Q Stroke Criteria *Q: - AMI *Q AMI Criteria *Q:
== END 2016-12-21 13:15 | disposition home health service (06) | DRG 176 ==
LOC: JP.ED 11:30 → JP.ICU 15:29 → JP.MS 12-19 14:42
PROVIDERS: ADMIT Hospitalist; ATTEND Hospitalist
DX: I26.99 Other pulmonary embolism without acute cor pulmonale (principal); I82.413 Acute embolism and thrombosis of femoral vein, bilateral; I82.431 Acute embolism and thrombosis of right popliteal vein; G30.9 Alzheimer's disease, unspecified; F02.80 Dementia in other diseases classified elsewhere, unspecified severity, without behavioral disturbance, psychotic disturbance, mood disturbance, and anxiety; Z87.891 Personal history of nicotine dependence; H54.7 Unspecified visual loss; H91.90 Unspecified hearing loss, unspecified ear; Z79.01 Long term (current) use of anticoagulants; Z91.89 Other specified personal risk factors, not elsewhere classified
CPT/HCPCS: 36415; 71020 ×2; 71260 ×2; 80053; 84484; 85025; 85610; 93005; 93970 ×2; 96361; 96374; 99285 ×2; A9270; J1644; J7030; J7040; Q9967; 80048; 83735; 85730; 93010; J1650

== ENCOUNTER 2017-02-01 18:16 | Emergency (ER) | payer MEDICARE, BC ==
[2017-02-01] MEDS ORDERED: Meclizine 25 MG Tab PO ONE (18:47)
[2017-02-01] MEDS ORDERED: Ondansetron 4 MG/2 ML SDV IVPUSH ONE (18:47)
[2017-02-01] MEDS ORDERED: Sodium Chloride 0.9% 1,000 ML IV SCH (19:00)
--- NOTE | 2017-02-01 19:20 | EDM.PDOC ---
ED HPI GENERAL MEDICAL PROBLEM - General Chief Complaint: Neuro Symptoms/Deficits Stated Complaint: NOT FEELING WELL Time Seen by Provider: 02/01/17 18:40 Source of Information: Reports: Patient, Family History Limitations: Reports: No Limitations - History of Present Illness INITIAL COMMENTS - FREE TEXT/NARRATIVE: pt arrived with feeling off balance and having some nausea. He was attempting to vomit when his family arrived. He has not been eating or drinking well. Onset: Today Duration: Hour(s):, Other (pt states he did not vomit but was wretching and feeling nauseated. ) Location: Reports: Other ( He is off balance but he is not having severe pain. ) Associated Symptoms: Reports: Weakness, Other ( feeling off balance. ) - Related Data Allergies Allergy/AdvReac Type Severity Reaction Status Date / Time No Known Allergies Allergy Verified 02/01/17 18:32 Home Meds: Home Meds Warfarin [Coumadin] 2.5 mg PO DAILY #120 tablet 12/21/16 [Rx] Cetirizine [ZyrTEC] 10 mg PO DAILY 02/01/17 [History] Past Medical History HEENT History: Reports: Hard of Hearing, Impaired Vision Respiratory History: Reports: PE Musculoskeletal History: Reports: Other (See Below) Other Musculoskeletal History: facial bones Neurological History: Reports: Alzheimers Disease, Concussion Psychiatric History: Reports: Alzheimers Disease, Anxiety, Depression Other Hematologic History: DVT AND PE - Infectious Disease History Infectious Disease History: Reports: Chicken Pox, Measles, Shingles - Past Surgical History Other HEENT Surgeries/Procedures: 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 Other Musculoskeletal Surgeries/Procedures:: DVT Social & Family History - Tobacco Use Smoking Status *Q: Unknown Ever Smoked Years of Tobacco use: 15 Packs/Tins Daily: 1 Used Tobacco, but Quit: Yes Month Tobacco Last Used: August Second Hand Smoke Exposure: No - Caffeine Use Caffeine Use: Reports: Coffee - Alcohol Use Days Per Week of Alcohol Use: 0 - Recreational Drug Use Recreational Drug Use: No ED ROS GENERAL - Review of Systems Review Of Systems: See Below Constitutional: Reports: No Symptoms HEENT: Reports: No Symptoms Respiratory: Reports: No Symptoms Cardiovascular: Reports: No Symptoms Endocrine: Reports: No Symptoms GI/Abdominal: Reports: No Symptoms : Reports: No Symptoms Musculoskeletal: Reports: No Symptoms Skin: Reports: No Symptoms Neurological: Reports: Other (pt is feeling off balance. ) ED EXAM, NEURO - Physical Exam Exam: See Below Text/Narrative:: pt arrived feeling nauseated and off balance. Exam Limited By: No Limitations General Appearance: Alert, No Apparent Distress, Anxious, Other (pt has had an eye injury to the left eye. His rt pupil reacts. ) Ears: Normal TMs Nose: Normal Inspection Throat/Mouth: Normal Inspection Head Exam: Atraumatic Neck: Normal Inspection Respiratory/Chest: No Respiratory Distress Cardiovascular: Regular Rate, Rhythm GI/Abdominal: Soft, Non-Tender, Other (pt is not having pain) (Male) Exam: Deferred Rectal (Males) Exam: Deferred Neurological: Alert, Other ( Pt does have dementia. and is forgetful. His history is difficult to track. ) Back Exam: Normal Inspection Extremities: Normal Inspection Psychiatric: Normal Affect Course - Vital Signs Last Recorded V/S: Last Vital Signs Temp 36.4 C 02/01/17 18:25 Pulse 73 02/01/17 19:24 Resp 17 02/01/17 19:24 BP 136/85 02/01/17 19:24 Pulse Ox 95 02/01/17 19:24 Orthostatic Blood Pressure [ 143/84 Standing] Orthostatic Blood Pressure [ 162/108 Sitting] Orthostatic Blood Pressure [ 137/89 Supine] - Orders/Labs/Meds Orders: Active Orders 24 hr Category Date Time Status EKG Documentation Completion [RC] ASDIRECTED Care 02/01/17 19:05 Active Orthostatic Vital Signs [RC] ASDIRECTED Care 02/01/17 19:28 Active Chest 1V Frontal [CR] Stat Exams 02/01/17 18:36 Taken Head wo Cont [CT] Stat Exams 02/01/17 19:27 Taken Sodium Chloride 0.9% [Normal Saline] 1,000 ml Med 02/01/17 19:00 Active IV ASDIRECTED EKG 12 Lead [EK] Routine Ther 02/01/17 19:04 Ordered Medication Orders Sodium Chloride (Normal Saline) 1,000 mls @ 500 mls/hr IV ASDIRECTED WINDY Last Admin: 02/01/17 19:27 Dose: 500 mls/hr Labs: Laboratory Tests 02/01/17 02/01/17 02/01/17 Range/Units 18:44 18:44 18:44 WBC 6.8 (4.5-11.0) K/uL RBC 5.31 (4.30-5.90) M/uL Hgb 15.5 H (12.0-15.0) g/dL Hct 47.6 (40.0-54.0) % MCV 90 (80-98) fL MCH 29 (27-31) pg MCHC 33 (32-36) % Plt Count 261 (150-400) K/uL Neut % (Auto) 57 (36-66) % Lymph % (Auto) 26 (24-44) % [place] % (Auto) 12 H (2-6) % Eos % (Auto) 5 H (2-4) % Baso % (Auto) 0 (0-1) % PT (9.5-12.0) sec INR (0.80-1.20) Sodium 142 (140-148) mmol/L Potassium 3.8 (3.6-5.2) mmol/L Chloride 105 (100-108) mmol/L Carbon Dioxide 29 (21-32) mmol/L Anion Gap 8.4 (5.0-14.0) mmol/L BUN 23 H (7-18) mg/dL Creatinine 1.2 (0.8-1.3) mg/dL Est Cr Clr Drug Dosing 46.64 mL/min Estimated GFR (MDRD) 58 L (>60) Glucose 77 (74-106) mg/dL Calcium 8.7 (8.5-10.1) mg/dL Total Bilirubin 0.5 D (0.2-1.0) mg/dL AST 37 (15-37) U/L ALT 93 H (12-78) U/L Alkaline Phosphatase 86 (46-116) U/L Troponin I < 0.017 (0.000-0.056) ng/mL Total Protein 6.6 (6.4-8.2) g/dL Albumin 3.2 L (3.4-5.0) g/dL Globulin 3.4 (2.3-3.5) g/dL Albumin/Globulin Ratio 0.9 L (1.2-2.2) Urine Color Urine Appearance Urine pH (4.5-8.0) Ur Specific [place] (1.008-1.030) Urine Protein (NEGATIVE) mg/dL Urine Glucose (UA) (NEGATIVE) mg/dL Urine Ketones (NEGATIVE) mg/dL Urine Occult Blood (NEGATIVE) Urine Nitrite (NEGAITVE) Urine Bilirubin (NEGATIVE) Urine Urobilinogen (NORMAL) mg/dL Ur Leukocyte Esterase (NEGATIVE) Urine RBC (0-5) Urine WBC (0-5) Ur Epithelial Cells Amorphous Sediment Urine Bacteria Urine Mucus 02/01/17 02/01/17 Range/Units 18:44 19:58 WBC (4.5-11.0) K/uL RBC (4.30-5.90) M/uL Hgb (12.0-15.0) g/dL Hct (40.0-54.0) % MCV (80-98) fL MCH (27-31) pg MCHC (32-36) % Plt Count (150-400) K/uL Neut % (Auto) (36-66) % Lymph % (Auto) (24-44) % [place] % (Auto) (2-6) % Eos % (Auto) (2-4) % Baso % (Auto) (0-1) % PT 26.1 H (9.5-12.0) sec INR 2.35 H (0.80-1.20) Sodium (140-148) mmol/L Potassium (3.6-5.2) mmol/L Chloride (100-108) mmol/L Carbon Dioxide (21-32) mmol/L Anion Gap (5.0-14.0) mmol/L BUN (7-18) mg/dL Creatinine (0.8-1.3) mg/dL Est Cr Clr Drug Dosing mL/min Estimated GFR (MDRD) (>60) Glucose (74-106) mg/dL Calcium (8.5-10.1) mg/dL Total Bilirubin (0.2-1.0) mg/dL AST (15-37) U/L ALT (12-78) U/L Alkaline Phosphatase (46-116) U/L Troponin I (0.000-0.056) ng/mL Total Protein (6.4-8.2) g/dL Albumin (3.4-5.0) g/dL Globulin (2.3-3.5) g/dL Albumin/Globulin Ratio (1.2-2.2) Urine Color Yellow Urine Appearance Clear Urine pH 7.0 (4.5-8.0) Ur Specific [place] 1.010 (1.008-1.030) Urine Protein Negative (NEGATIVE) mg/dL Urine Glucose (UA) Normal (NEGATIVE) mg/dL Urine Ketones Negative (NEGATIVE) mg/dL Urine Occult Blood Negative (NEGATIVE) Urine Nitrite Negative (NEGAITVE) Urine Bilirubin Negative (NEGATIVE) Urine Urobilinogen Normal (NORMAL) mg/dL Ur Leukocyte Esterase Negative (NEGATIVE) Urine RBC 0-5 (0-5) Urine WBC 0-5 (0-5) Ur Epithelial Cells Few Amorphous Sediment Few Urine Bacteria Rare Urine Mucus Few Meds: Medications Generic Name Dose Route Start Last Admin Trade Name Freq PRN Reason Stop Dose Admin Sodium Chloride 1,000 mls @ 500 mls/hr 02/01/17 19:00 02/01/17 19:27 Normal Saline IV 500 mls/hr ASDIRECTED WINDY Administration Discontinued Medications Generic Name Dose Route Start Last Admin Trade Name Freq PRN Reason Stop Dose Admin Meclizine HCl 25 mg 02/01/17 18:47 02/01/17 19:27 Antivert PO 02/01/17 18:48 25 mg ONETIME ONE Administration Ondansetron HCl 4 mg 02/01/17 18:47 02/01/17 19:27 Zofran IVPUSH 02/01/17 18:48 4 mg ONETIME ONE Administration - Re-Assessments/Exams Free Text/Narrative Re-Assessment/Exam: 02/01/17 20:49 pt had a cat scan of the head which showed no acute findings. He had lab work that did indicate slight dehydration. He had a normal ekg. His orthostatics were not alarming. 02/01/17 21:08 he was ambulated and did well with that. He had some 7 up and that went well. He has not experienced the off balance sensation. He was hydrated with 1 liter of fluids. Departure - Departure Time of Disposition: 21:10 Disposition: Home, Self-Care 01 Condition: Fair Clinical Impression: Dehydration, Nausea - Discharge Information Referrals: Vilma Lawson MD [Primary Care Provider] - Forms: ED Department Discharge Care Plan Goals: push fluids, zoforan 4mg q6h prn for nausea, offer fluids tonight. - My Orders Last 24 Hours: My Active Orders 02/01/17 18:36 Chest 1V Frontal [CR] Stat 02/01/17 19:00 Sodium Chloride 0.9% [Normal Saline] 1,000 ml IV ASDIRECTED 02/01/17 19:04 EKG 12 Lead [EK] Routine 02/01/17 19:05 EKG Documentation Completion [RC] ASDIRECTED 02/01/17 19:27 Head wo Cont [CT] Stat 02/01/17 19:28 Orthostatic Vital Signs [RC] ASDIRECTED - Assessment/Plan Last 24 Hours: My Active Orders 02/01/17 18:36 Chest 1V Frontal [CR] Stat 02/01/17 19:00 Sodium Chloride 0.9% [Normal Saline] 1,000 ml IV ASDIRECTED 02/01/17 19:04 EKG 12 Lead [EK] Routine 02/01/17 19:05 EKG Documentation Completion [RC] ASDIRECTED 02/01/17 19:27 Head wo Cont [CT] Stat 02/01/17 19:28 Orthostatic Vital Signs [RC] ASDIRECTED
[2017-02-01 20:05] VITALS: BP 136/85
--- NOTE | 2017-02-02 08:44 | CR ---
Chest 1V Frontal INDICATION: weak, recent PEs. FINDINGS: Comparison 12/18/2016. No focal consolidation. Tortuous aorta. Normal heart size. AP portabl e chest x-ray otherwise negative.
== END 2017-02-01 21:36 | disposition home or self-care (01) ==
LOC: JP.ED 18:16
DX: E86.0 Dehydration (principal); R11.0 Nausea; Z87.891 Personal history of nicotine dependence; Z79.899 Other long term (current) drug therapy
CPT/HCPCS: 36415; 70450; 71010; 80053; 81001; 84484; 85025; 85610; 93005; 96361; 96374; 99284; A9270; J2405; J7040; 93010; 99283

== ENCOUNTER 2017-05-09 12:32 | Emergency (ER) | payer MEDICARE, BC ==
[2017-05-09 14:55] VITALS: BP 164/91
--- NOTE | 2017-05-09 15:14 | EDM.PDOC ---
ED HPI GENERAL MEDICAL PROBLEM - General Chief Complaint: Cardiovascular Problem Stated Complaint: BLOOD PRESSURE HIGH DIZZY Time Seen by Provider: 05/09/17 14:00 Source of Information: Reports: Patient, Family History Limitations: Reports: No Limitations - History of Present Illness INITIAL COMMENTS - FREE TEXT/NARRATIVE: pt has had dizziness off and on today his bp was quite elevated. at [facility]. He had a good bp on arrival He evidently had a bp of 180/90. . Onset: Today Duration: Hour(s):, Other (Pt states he has been having dizziness off and on but it seemed mor today. He states when he goes to stand up he has to just wait for awhile until things level off. ) Location: Reports: Other ( dizziness) Associated Symptoms: Reports: No Other Symptoms, Other (Pt has had heavy metal poisoing and has significant memory loss) - Related Data Allergies Allergy/AdvReac Type Severity Reaction Status Date / Time No Known Allergies Allergy Verified 02/01/17 18:32 Home Meds: Home Meds Warfarin [Coumadin] 2.5 mg PO DAILY #120 tablet 12/21/16 [Rx] hydrOXYzine HCl [hydrOXYzine] 10 mg PO DAILY 05/09/17 [History] Past Medical History HEENT History: Reports: Hard of Hearing, Impaired Vision Cardiovascular History: Reports: Hypertension Respiratory History: Reports: PE Musculoskeletal History: Reports: Other (See Below) Other Musculoskeletal History: facial bones Neurological History: Reports: Alzheimers Disease, Concussion, TIA Psychiatric History: Reports: Alzheimers Disease, Anxiety, Depression Other Hematologic History: DVT AND PE - Infectious Disease History Infectious Disease History: Reports: Chicken Pox, Measles, Shingles - Past Surgical History Other HEENT Surgeries/Procedures: 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 Other Musculoskeletal Surgeries/Procedures:: DVT Social & Family History - Tobacco Use Smoking Status *Q: Never Smoker Years of Tobacco use: 15 Packs/Tins Daily: 1 Used Tobacco, but Quit: Yes Month Tobacco Last Used: August Second Hand Smoke Exposure: No - Caffeine Use Caffeine Use: Reports: Coffee - Alcohol Use Days Per Week of Alcohol Use: 0 - Recreational Drug Use Recreational Drug Use: No ED ROS GENERAL - Review of Systems Review Of Systems: See Below Constitutional: Reports: No Symptoms HEENT: Reports: No Symptoms Respiratory: Reports: No Symptoms Cardiovascular: Reports: Other (bp was elevated. Evidently a pressure of 180/ 90 was obtained. ) Endocrine: Reports: No Symptoms GI/Abdominal: Reports: No Symptoms : Reports: No Symptoms Musculoskeletal: Reports: No Symptoms Skin: Reports: No Symptoms ED EXAM, GENERAL - Physical Exam Exam: See Below Free Text/Narrative:: Pt was found to have a elevated bp at the [facility]. On arrival here his bp was good. He was followed here and he did not have further bp elevations. Exam Limited By: No Limitations General Appearance: Alert, No Apparent Distress, Other ( He states his dizziness does not seem like vertigo. pupils are equal and reactive. ) Ears: Normal TMs Nose: Normal Inspection Throat/Mouth: Normal Inspection Head: Atraumatic Neck: Normal Inspection Respiratory/Chest: No Respiratory Distress Cardiovascular: Regular Rate, Rhythm, Other ( BP stayed quite stable on multiple rechecks. ) GI/Abdominal: Soft, Non-Tender (Male) Exam: Deferred Rectal (Males) Exam: Deferred Back Exam: Normal Inspection Extremities: Normal Inspection Neurological: Alert, Oriented, Normal Cognition, Other ( He was oriented today but he does have alot of memory loss) Psychiatric: Normal Affect Course - Vital Signs Last Recorded V/S: Last Vital Signs Temp 36.2 C 05/09/17 13:08 Pulse 73 05/09/17 14:54 Resp 18 05/09/17 14:54 BP 164/91 H 05/09/17 14:54 Pulse Ox 95 05/09/17 14:54 Orthostatic Blood Pressure [ 129/82 Standing] Orthostatic Blood Pressure [ 133/87 Sitting] Orthostatic Blood Pressure [ 131/80 Supine] - Orders/Labs/Meds Labs: Laboratory Tests 05/09/17 05/09/17 Range/Units 14:58 14:58 WBC 5.9 (4.5-11.0) K/uL RBC 5.66 (4.30-5.90) M/uL Hgb 16.3 H (12.0-15.0) g/dL Hct 50.2 (40.0-54.0) % MCV 89 (80-98) fL MCH 29 (27-31) pg MCHC 33 (32-36) % Plt Count 253 (150-400) K/uL Neut % (Auto) 52 (36-66) % Lymph % (Auto) 32 (24-44) % [place] % (Auto) 11 H (2-6) % Eos % (Auto) 4 (2-4) % Baso % (Auto) 0 (0-1) % Sodium 145 (140-148) mmol/L Potassium 4.2 (3.6-5.2) mmol/L Chloride 108 (100-108) mmol/L Carbon Dioxide 31 (21-32) mmol/L Anion Gap 6.2 (5.0-14.0) mmol/L BUN 13 (7-18) mg/dL Creatinine 1.0 (0.8-1.3) mg/dL Est Cr Clr Drug Dosing 55.97 mL/min Estimated GFR (MDRD) > 60 (>60) Glucose 80 (74-106) mg/dL Calcium 8.9 (8.5-10.1) mg/dL - Re-Assessments/Exams Free Text/Narrative Re-Assessment/Exam: 05/10/17 07:33 Pt was ambulated and his bp did not become markedly elevated. Departure - Departure Time of Disposition: 15:12 Disposition: Home, Self-Care 01 Condition: Fair Clinical Impression: Dizziness, Hypertension Instructions: Vertigo, [id number], Hypertension, [id number] Referrals: Vilma Lawson MD [Primary Care Provider] - Forms: ED Department Discharge Care Plan Goals: appt with Dr Lawson next week follow up on bp. , schedule carotid Us. He will have no med changes.
== END 2017-05-09 15:40 | disposition home or self-care (01) ==
LOC: JP.ED 12:32
DX: I10 Essential (primary) hypertension (principal); G30.9 Alzheimer's disease, unspecified; F02.80 Dementia in other diseases classified elsewhere, unspecified severity, without behavioral disturbance, psychotic disturbance, mood disturbance, and anxiety; Z79.01 Long term (current) use of anticoagulants; Z87.891 Personal history of nicotine dependence
CPT/HCPCS: 36415; 80048; 85025; 99283; 99284

== ENCOUNTER 2019-09-19 13:56 | Inpatient (IN) | payer MEDICARE ==
--- NOTE | 2019-09-19 15:22 | EDM.PDOC ---
ED HPI GENERAL MEDICAL PROBLEM - General Chief Complaint: Gastrointestinal Problem Stated Complaint: STOMACH PAIN Time Seen by Provider: 09/19/19 15:22 Source of Information: Reports: Patient, Alf Records - History of Present Illness INITIAL COMMENTS - FREE TEXT/NARRATIVE: 84 year old present to [place] ER for evaluation of a few days of stomach pain with vomiting. Patient was evaluated on Thursday this weekend with blood work obtained at [facility]. Patient had no vomiting or pain today. Vital signs normal at [facility]: 139/81 HR 93 O2 76 HR. Patient has had a recent negative COVID test. Nursing staff concerned regarding gallbladder concerns after blood test available today. Patient has a poor appetite. Patient is a very poor historian: offers no complaints during evaluat ion except "I just want a little peace". CODE STATUS: DNR/DNI Comfort measures annotated on POLST Associated Symptoms: Denies: Malaise - Related Data Allergies Allergy/AdvReac Type Severity Reaction Status Date / Time No Known Allergies Allergy Verified 09/19/19 15:05 Home Meds: Home Meds Mirtazapine [Remeron] 15 mg PO BEDTIME 09/19/19 [History] Omeprazole 20 mg PO BEDTIME 09/19/19 [History] traZODone HCl [Trazodone HCl] 50 mg PO BEDTIME 09/19/19 [History] Past Medical History HEENT History: Reports: Hard of Hearing, Impaired Vision Cardiovascular History: Reports: Hypertension Respiratory History: Reports: PE Musculoskeletal History: Reports: Other (See Below) Other Musculoskeletal History: facial bones Neurological History: Reports: Alzheimers Disease, Concussion, TIA Psychiatric History: Reports: Alzheimers Disease, Anxiety, Depression Other Hematologic History: DVT AND PE - Infectious Disease History Infectious Disease History: Reports: Chicken Pox, Measles, Shingles - Past Surgical History Other HEENT Surgeries/Procedures: 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 Answers yes and no questions only.) Reason Not Obtained: dementia ED EXAM, GENERAL - Physical Exam Exam: See Below Exam Limited By: Other (physicial and cognative decline at baseline) Eye Exam: Left Eye: Other (discharge noted), Bilateral Eye: EOMI, Normal Inspection Ears: Normal External Exam, Hearing Loss Nose: Normal Inspection Throat/Mouth: Normal Voice, No Airway Compromise Neck: Normal Inspection Respiratory/Chest: No Respiratory Distress, Lungs Clear, Normal Breath Sounds Cardiovascular: Regular Rate, Rhythm, Systolic Murmur Peripheral Pulses: 3+: Radial (L), Radial (R) GI/Abdominal: Normal Bowel Sounds, Soft, Guarding (right upper and mid abdomen), Rigid (slight ), Tender (Male) Exam: Deferred Rectal (Males) Exam: Deferred Extremities: Normal Inspection Neurological: Alert, Confused, Slow to Respond, Memory Loss Remote Events, Memory Loss Recent Events, Abnormal Gait Psychiatric: Depressed Mood, Flat Affect EKG INTERPRETATION EKG Date: 09/19/19 Time: 16:01 Rhythm: NSR Rate (Beats/Min): 71 [place]: LAD-Left [place] Deviation P-Wave: Present QRS: Wide ST-T: Other (non-specific) QT: Normal Course - Vital Signs Last Recorded V/S: Last Vital Signs Temp 35.6 C L 09/19/19 14:45 Pulse 72 09/19/19 17:32 Resp 18 09/19/19 17:32 BP 147/86 H 09/19/19 17:32 Pulse Ox 92 L 09/19/19 17:32 - Orders/Labs/Meds Orders: Active Orders 24 hr Category Date Time Status EKG Documentation Completion [RC] ASDIRECTED Care 09/19/19 15:50 Active Sodium Chloride 0.9% [Normal Saline] 1,000 ml Med 09/19/19 17:00 Active IV ASDIRECTED EKG 12 Lead [EK] Urgent Ther 09/19/19 15:49 Ordered Medication Orders Sodium Chloride (Normal Saline) 1,000 mls @ 500 mls/hr IV ASDIRECTED WINDY Last Admin: 09/19/19 17:31 Dose: 500 mls/hr Documented by: PREILOR Labs: Laboratory Tests 09/19/19 09/19/19 09/19/19 Range/Units 16:00 16:00 16:00 WBC (4.5-11.0) K/uL RBC (4.30-5.90) M/uL Hgb (12.0-15.0) g/dL Hct (40.0-54.0) % MCV (80-98) fL MCH (27-31) pg MCHC (32-36) % Plt Count (150-400) K/uL Neut % (Auto) (36-66) % Lymph % (Auto) (24-44) % [place] % (Auto) (2-6) % Eos % (Auto) (2-4) % Baso % (Auto) (0-1) % PT 10.2 (9.5-12.0) sec INR 0.94 (0.80-1.20) Sodium 146 (140-148) mmol/L Potassium 3.5 L (3.6-5.2) mmol/L Chloride 110 H (100-108) mmol/L Carbon Dioxide 26 (21-32) mmol/L Anion Gap 13.5 (5.0-14.0) mmol/L BUN 19 H (7-18) mg/dL Creatinine 1.0 (0.8-1.3) mg/dL Est Cr Clr Drug Dosing TNP Estimated GFR (MDRD) > 60 (>60) Glucose 117 H (74-106) mg/dL Lactic Acid 0.7 (0.4-2.0) mmol/L Calcium 8.3 L (8.5-10.1) mg/dL Magnesium (1.8-2.4) mg/dL Total Bilirubin (0.2-1.0) mg/dL Direct Bilirubin (0.0-0.2) mg/dL Indirect Bilirubin AST (15-37) U/L ALT (12-78) U/L Alkaline Phosphatase (46-116) U/L Troponin I < 0.017 (0.000-0.056) ng/mL C-Reactive Protein 5.59 H (0.0-0.3) mg/dL NT-Pro-B Natriuret Pep 160 (5-450) pg/mL Total Protein (6.4-8.2) g/dL Albumin (3.4-5.0) g/dL Globulin (2.3-3.5) g/dL Albumin/Globulin Ratio (1.2-2.2) Lipase 2497 H (73-393) U/L 09/19/19 09/19/19 09/19/19 Range/Units 16:00 16:00 16:00 WBC 5.9 (4.5-11.0) K/uL RBC 4.97 (4.30-5.90) M/uL Hgb 14.6 D (12.0-15.0) g/dL Hct 44.5 (40.0-54.0) % MCV 90 (80-98) fL MCH 29 (27-31) pg MCHC 33 (32-36) % Plt Count 195 (150-400) K/uL Neut % (Auto) 68 H (36-66) % Lymph % (Auto) 18 L (24-44) % [place] % (Auto) 12 H (2-6) % Eos % (Auto) 3 (2-4) % Baso % (Auto) 0 (0-1) % PT (9.5-12.0) sec INR (0.80-1.20) Sodium (140-148) mmol/L Potassium (3.6-5.2) mmol/L Chloride (100-108) mmol/L Carbon Dioxide (21-32) mmol/L Anion Gap (5.0-14.0) mmol/L BUN (7-18) mg/dL Creatinine (0.8-1.3) mg/dL Est Cr Clr Drug Dosing Estimated GFR (MDRD) (>60) Glucose (74-106) mg/dL Lactic Acid (0.4-2.0) mmol/L Calcium (8.5-10.1) mg/dL Magnesium 2.5 H (1.8-2.4) mg/dL Total Bilirubin 2.5 H (0.2-1.0) mg/dL Direct Bilirubin 1.72 H (0.0-0.2) mg/dL Indirect Bilirubin 0.78 AST 165 H D (15-37) U/L ALT 309 H (12-78) U/L Alkaline Phosphatase 290 H (46-116) U/L Troponin I (0.000-0.056) ng/mL C-Reactive Protein (0.0-0.3) mg/dL NT-Pro-B Natriuret Pep (5-450) pg/mL Total Protein 6.2 L (6.4-8.2) g/dL Albumin 2.7 L (3.4-5.0) g/dL Globulin 3.5 (2.3-3.5) g/dL Albumin/Globulin Ratio 0.8 L (1.2-2.2) Lipase (73-393) U/L Meds: Medications Generic Name Dose Route Start Last Admin Trade Name Dougie PRN Reason Stop Dose Admin Sodium Chloride 1,000 mls @ 500 mls/hr 09/19/19 17:00 09/19/19 17:31 Normal Saline IV 500 mls/hr ASDIRECTED WINDY Administration Discontinued Medications Generic Name Dose Route Start Last Admin Trade Name Dougie PRN Reason Stop Dose Admin Sodium Chloride 87 mls @ 3 mls/sec 09/19/19 17:00 09/19/19 17:15 Normal Saline IV 09/19/19 17:01 3 mls/sec ASDIRECTED WINDY Administration Iopamidol 123 ml 09/19/19 17:00 09/19/19 17:16 Isovue-300 (61%) IV 09/19/19 17:01 150 ml . DIRECTED WINDY Administration Sodium Chloride 10 ml 09/19/19 16:57 09/19/19 17:15 Saline Flush FLUSH 09/19/19 16:58 10 ml ONETIME ONE Administration - Radiology Interpretation Free Text/Narrative:: CT Abd/Pelvis IV contrast radiology report pertinent findings: Gall bladder: No calcified stones. Pancreas: Pancreatic duct is dilate immediately distal to the ampulla measuring up to 7mm, the proximal main pancreatic duct is borderline dilated 4 mm. Minimal fullness in the pancreas head anterior near the level of the common bile duct is of uncertain significance. No discrete mass or phlegmon. Impression: 1. No phlegmon to suggest pancreatitis. However, dilated segment of the proximal pancreatic duct. Differential diagnosis could include partial obstruction due to ampullary lesion or proximal main duct IPMN. ERCP MRCP is suggested for further evaluation with endoscopic ultrasound. This will also allow for characterization of the pancreatic head which shows subtle enlargement. 2. Normal caliber biliary tree. 3. Enlarged prostate. 4. Additional possible irregular enhancing polypoid mass in the urinary bladder. Transitional cell neoplasm is the diagnosis of exclusion. Suggest urologic referral and cystoscopy. 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 I discussed transfer to [place] for further evaluation and GI consultation with ERCP and endoscopic procedure. Patient does not seem to have significant pain but very flat affect and poor historian due to dementia at baseline. Laboratory studies on Thursday compared to today reveals improving LFTs but elevated lipase noted with CT concerning for pancreatic duct stone vs mass at this time. Treatment with IVF and pain management at this time. Possible further evaluation with MRCP in [place] but limited work-up available. Laboratory studies may improve with IVF, time and pain medications without further interventions. Family to reassess situation in am after repeat labs and possible General Surgery consultation for any available interventions. Spoke with hospitalist regarding admission tonight for IVF and pain management. 09/19/19 18:39 Departure - Departure Time of Disposition: 18:47 Disposition: Admitted As Inpatient 64 Clinical Impression: Pancreatitis due to obstruction of pancreatic duct - Discharge Information Referrals: PCP,None [Primary Care Provider] - Forms: ED Department Discharge Sepsis Event Note (ED) - Evaluation Sepsis Screening Result: No Definite Risk - Focused Exam Vital Signs: Vital Signs Temp Pulse Resp BP Pulse Ox 09/19/19 17:32 72 18 147/86 H 92 L 09/19/19 14:45 35.6 C L 74 20 139/80 94 L 09/19/19 14:15 35.6 C L 74 20 139/80 94 L - My Orders Last 24 Hours: My Active Orders 09/19/19 15:49 EKG 12 Lead [EK] Urgent 09/19/19 15:50 EKG Documentation Completion [RC] ASDIRECTED 09/19/19 17:00 Sodium Chloride 0.9% [Normal Saline] 1,000 ml IV ASDIRECTED - Assessment/Plan Last 24 Hours: My Active Orders 09/19/19 15:49 EKG 12 Lead [EK] Urgent 09/19/19 15:50 EKG Documentation Completion [RC] ASDIRECTED 09/19/19 17:00 Sodium Chloride 0.9% [Normal Saline] 1,000 ml IV ASDIRECTED
[2019-09-19] MEDS ORDERED: Sodium Chloride 0.9% 10 ML Syringe FLUSH ONE (16:57)
[2019-09-19] MEDS ORDERED: Sodium Chloride 0.9% 1,000 ML IV SCH (17:00)
[2019-09-19] MEDS ORDERED: Sodium Chloride 0.9% 87 ML IV SCH (17:00)
[2019-09-19] MEDS ORDERED: Iopamidol 612 MG/ML 150 ML Bottle IV SCH (17:00)
--- NOTE | 2019-09-19 17:59 | CRLCT ---
INDICATION : Abdominal pain. Elevated bilirubin and lipase. TECHNIQUE : CT Scan of the abdomen and pelvis. 123 cc Isovue IV. COMPARISON : No comparison FINDINGS: Lung bases: scattered linear scars are present Liver: Unremarkable. Gallbladder: No calcified stones. Spleen: Unremarkable. Pancreas: Pancreatic duct is dilated immediately distal to the ampulla measuring up to 7 millimeters. the proximal main pancreatic duct is borderline dilated at 4 millimeters. minimal fullness in the pancreas head anterior near the level of the common bile duct is of uncertain significance. NO DISCRETE MASS OR PHLEGMON. Adrenal glands: Unremarkable left adrenal. Right adrenal has a somewhat irregular with minimal nodularity. Kidneys: Unremarkable.Large cysts. No hydronephrosis.. GI tract: Unremarkable. Aorta and retroperitoneum: Aorta is normal in caliber.Scattered calcified plaques with tortuosity. Lymph nodes: No pathologic retroperitoneal, mesenteric, or pelvic lymph node enlargement. Urinary bladder: m there is a enhancing irregular marginated possible mass within the posterior urinary bladder at the bladder base measuring 3.5 centimeters in diameter. A median prostate lobe is also present. The mass appears discrete from the prostate lobe. Pelvis: Prostate is enlarged. The volume is 155 cc. Miscellaneous abdomen:Unremarkable. Skeletal:No suspicious lesions. Incomplete segmentation or ossification of the intervertebral disc L2-L3 which is incidental and of doubtful clinical significance. IMPRESSION: 1. No phlegmon to suggest pancreatitis. However, a dilated segment of the proximal pancreatic duct. Differential diagnosis could include partial obstruction due to ampullary lesion or proximal main duct IPMN. ERCP is suggested for further evaluation with endoscopic ultrasound. This will also allow for characterization of the pancreatic head which shows subtle enlargement. 2. Normal caliber biliary tree. 3. Enlarged prostate. 4. Additional possible irregular enhancing polypoid mass in the urinary bladder. Transitional cell neoplasm is the diagnosis of exclusion. Suggest urologic referral and cystoscopy. Please note that all CT scans at this facility use dose modulation, iterative reconstruction, and/or weight-based dosing when appropriate to reduce radiation dose to as low as reasonably achievable. Dictated by Rocky Nelson MD @ Sep 19 2019 5:43PM Signed by Dr. Rocky Nelson @ Sep 19 2019 5:57PM
--- NOTE | 2019-09-19 18:50 | PCM.HP.2 ---
H&P History of Present Illness - General Date of Service: 09/19/19 Admit Problem/Dx: Admission Diagnosis/Problem Admission Diagnosis/Problem Pancreatitis Source of Information: Provider, RN Notes Reviewed History Limitations: Reports: Other (Dementia) - History of Present Illness Initial Comments - Free Text/Narative: Mr. Miles is an 84-year-old gentleman who was admitted through the emergency department with a recent history of abdominal pain and nausea. He actually felt somewhat better today and denied significant pain, but labs were obtained and showed elevation in bilirubin as well as other liver studies and increase in amylase level. On further evaluation in the emergency department CT scan does show some dilatation of the pancreatic duct and subtle enlargement of the pancreatic head. ER provider did contact the family as the patient is noted to be comfort cares only. They requested hospitalization and further evaluation before deciding on a course of action and potential treatment. Mr. Miles is unable to provide a meaningful history concerning recent symptoms or review of systems because of his underlying dementia. - Related Data Allergies/Adverse Reactions: Allergies Allergy/AdvReac Type Severity Reaction Status Date / Time No Known Allergies Allergy Verified 09/19/19 15:05 Home Medications: Home Meds Mirtazapine [Remeron] 15 mg PO BEDTIME 09/19/19 [History] Omeprazole 20 mg PO BEDTIME 09/19/19 [History] traZODone HCl [Trazodone HCl] 50 mg PO BEDTIME 09/19/19 [History] Past Medical History HEENT History: Reports: Hard of Hearing, Impaired Vision Cardiovascular History: Reports: Hypertension Respiratory History: Reports: PE Musculoskeletal History: Reports: Other (See Below) Other Musculoskeletal History: facial bones Neurological History: Reports: Alzheimers Disease, Concussion, TIA Psychiatric History: Reports: Alzheimers Disease, Anxiety, Depression Other Hematologic History: DVT AND PE - Infectious Disease History Infectious Disease History: Reports: Chicken Pox, Measles, Shingles - Past Surgical History Other HEENT Surgeries/Procedures: 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 Other Musculoskeletal Surgeries/Procedures:: DVT Social & Family History - Tobacco Use Smoking Status *Q: Never Smoker - Caffeine Use Caffeine Use: Reports: Coffee - Recreational Drug Use Recreational Drug Use: No H&P Review of Systems - Review of Systems: Review Of Systems: See Below General: Reports: ROS unobtainable (Dementia) Exam - Exam Exam: See Below - Vital Signs Vital Signs: Last Vital Signs Temp 96.1 F L 09/19/19 14:45 Pulse 72 09/19/19 17:32 Resp 18 09/19/19 17:32 BP 147/86 H 09/19/19 17:32 Pulse Ox 92 L 09/19/19 17:32 Weight: 180 lb - Exam Quality Assessment: DVT Prophylaxis General: Alert, Cooperative. No: Oriented HEENT: Conjunctiva Clear, Hearing Intact, Mucosa Moist & [place], Normal Nasal Septum, Posterior Pharynx Clear, Pupils Equal Neck: Supple, Trachea Midline, +2 Carotid Pulse wo Bruit Lungs: Clear to Auscultation, Normal Respiratory Effort Cardiovascular: Regular Rate, Regular Rhythm, Normal S1, Normal S2. No: Systolic Murmur, Diastolic Murmur GI/Abdominal Exam: Soft, Non-Tender, No Organomegaly, No Distention Back Exam: Normal Inspection, Full Range of Motion Extremities: Non-Tender, No Pedal Edema Skin: Warm, Dry, Intact Neurological: Cranial Nerves Intact, Strength Equal Bilateral, Normal Speech, Normal Tone, Sensation Intact. No: Focal Deficit Neuro Extensive - Mental Status: Alert, Disorientation to Place, Disorientation to Time, Memory Loss-Remote Events, Memory Loss-Recent Events. No: Disorientation to Person - Patient Data Lab Results Last 24 hrs: Laboratory Results - last 24 hr 09/19/19 09/19/19 09/19/19 Range/Units 16:00 16:00 16:00 WBC (4.5-11.0) K/uL RBC (4.30-5.90) M/uL Hgb (12.0-15.0) g/dL Hct (40.0-54.0) % MCV (80-98) fL MCH (27-31) pg MCHC (32-36) % Plt Count (150-400) K/uL Neut % (Auto) (36-66) % Lymph % (Auto) (24-44) % [place]'Brien % (Auto) (2-6) % Eos % (Auto) (2-4) % Baso % (Auto) (0-1) % PT 10.2 (9.5-12.0) sec INR 0.94 (0.80-1.20) Sodium 146 (140-148) mmol/L Potassium 3.5 L (3.6-5.2) mmol/L Chloride 110 H (100-108) mmol/L Carbon Dioxide 26 (21-32) mmol/L Anion Gap 13.5 (5.0-14.0) mmol/L BUN 19 H (7-18) mg/dL Creatinine 1.0 (0.8-1.3) mg/dL Est Cr Clr Drug Dosing TNP Estimated GFR (MDRD) > 60 (>60) Glucose 117 H (74-106) mg/dL Lactic Acid 0.7 (0.4-2.0) mmol/L Calcium 8.3 L (8.5-10.1) mg/dL Magnesium (1.8-2.4) mg/dL Total Bilirubin (0.2-1.0) mg/dL Direct Bilirubin (0.0-0.2) mg/dL Indirect Bilirubin AST (15-37) U/L ALT (12-78) U/L Alkaline Phosphatase (46-116) U/L Troponin I < 0.017 (0.000-0.056) ng/mL C-Reactive Protein 5.59 H (0.0-0.3) mg/dL NT-Pro-B Natriuret Pep 160 (5-450) pg/mL Total Protein (6.4-8.2) g/dL Albumin (3.4-5.0) g/dL Globulin (2.3-3.5) g/dL Albumin/Globulin Ratio (1.2-2.2) Lipase 2497 H (73-393) U/L 09/19/19 09/19/19 09/19/19 Range/Units 16:00 16:00 16:00 WBC 5.9 (4.5-11.0) K/uL RBC 4.97 (4.30-5.90) M/uL Hgb 14.6 D (12.0-15.0) g/dL Hct 44.5 (40.0-54.0) % MCV 90 (80-98) fL MCH 29 (27-31) pg MCHC 33 (32-36) % Plt Count 195 (150-400) K/uL Neut % (Auto) 68 H (36-66) % Lymph % (Auto) 18 L (24-44) % O'Brien % (Auto) 12 H (2-6) % Eos % (Auto) 3 (2-4) % Baso % (Auto) 0 (0-1) % PT (9.5-12.0) sec INR (0.80-1.20) Sodium (140-148) mmol/L Potassium (3.6-5.2) mmol/L Chloride (100-108) mmol/L Carbon Dioxide (21-32) mmol/L Anion Gap (5.0-14.0) mmol/L BUN (7-18) mg/dL Creatinine (0.8-1.3) mg/dL Est Cr Clr Drug Dosing Estimated GFR (MDRD) (>60) Glucose (74-106) mg/dL Lactic Acid (0.4-2.0) mmol/L Calcium (8.5-10.1) mg/dL Magnesium 2.5 H (1.8-2.4) mg/dL Total Bilirubin 2.5 H (0.2-1.0) mg/dL Direct Bilirubin 1.72 H (0.0-0.2) mg/dL Indirect Bilirubin 0.78 AST 165 H D (15-37) U/L ALT 309 H (12-78) U/L Alkaline Phosphatase 290 H (46-116) U/L Troponin I (0.000-0.056) ng/mL C-Reactive Protein (0.0-0.3) mg/dL NT-Pro-B Natriuret Pep (5-450) pg/mL Total Protein 6.2 L (6.4-8.2) g/dL Albumin 2.7 L (3.4-5.0) g/dL Globulin 3.5 (2.3-3.5) g/dL Albumin/Globulin Ratio 0.8 L (1.2-2.2) Lipase (73-393) U/L Result Diagrams: 09/19/19 16:00 09/19/19 16:00 Sepsis Event Note - Evaluation Sepsis Screening Result: No Definite Risk - Focused Exam Vital Signs: Vital Signs Temp Pulse Resp BP Pulse Ox 09/19/19 17:32 72 18 147/86 H 92 L 09/19/19 14:45 96.1 F L 74 20 139/80 94 L 09/19/19 14:15 96.1 F L 74 20 139/80 94 L Date Exam was Performed: 09/19/19 Time Exam was Performed: 19:09 *Q Meaningful Use (ADM) - VTE Risk Assess *Q Each Risk Factor Represents 1 Point: Obesity ( BMI > 25 kg/m2) Total Score 1 Point Risk Factors: 1 Each Risk Factor Represents 2 Points: None Total Score 2 Point Risk Factors: 0 Each Risk Factor Represents 3 Points: Age 75 Years or Greater Total Score 3 Point Risk Factors: 3 Each Risk Factor Represents 5 Points: None Total Score 5 Point Risk Factors: 0 Venous Thromboembolism Risk Factor Score *Q: 4 Problem List Initiated/Reviewed/Updated: Yes Orders Last 24hrs: Active Orders 24 hr Category Date Time Status Patient Status Manage Transfer [TRANSFER] Routine ADT 09/19/19 18:41 Ordered EKG Documentation Completion [RC] ASDIRECTED Care 09/19/19 15:50 Active Sodium Chloride 0.9% [Normal Saline] 1,000 ml Med 09/19/19 17:00 Active IV ASDIRECTED Resuscitation Status Routine Resus Stat 09/19/19 18:45 Ordered EKG 12 Lead [EK] Urgent Ther 09/19/19 15:49 Ordered Medication Orders Sodium Chloride (Normal Saline) 1,000 mls @ 500 mls/hr IV ASDIRECTED WINDY Last Admin: 09/19/19 17:31 Dose: 500 mls/hr Documented by: PREILOR Assessment/Plan Comment:: ASSESSMENT AND PLAN PANCREATITIS AND ELEVATED LIVER STUDIES-CT scan does show enlargement of the p ancreatic duct, no enlargement of the biliary ducts. Question of possible subtle enlargement of the pancreatic head. Probable common duct stone which likely has passed given that the patient symptoms have improved, versus other obstructing lesion. Patient has been comfort cares only but family at this point would like further evaluation. We will plan to start with MRCP and then have a discussion concerning further evaluation if warranted. -Pain and nausea medication as needed -Reassess lipase and liver studies in a.m. -N.p.o. -IV fluids for hydration -MRCP in a.m. -Further discussion with family concerning results and further evaluation/intervention POSSIBLE BLADDER MASS-incidental finding noted on CT scan -Discuss further possible evaluation with family DEMENTIA -Continue outpatient medications -Melatonin 9 mg p.o. nightly -Haldol as needed MAINTENANCE ISSUES -DVT prophylaxis; Lovenox 40 mg subcu daily -GI prophylaxis; Protonix 40 mg p.o. daily -Duvall catheter; not indicated -Nutrition; n.p.o. until after MRCP -Nicotine dependence; not required CODE STATUS-DNR/DNI ADMISSION STATUS-patient will be admitted to inpatient status, expect at least a 2 night hospital stay for evaluation and management of problems as outlined above. At the time of this admission I do not reasonably expected evaluation and management of this problem will require more than a 96 hour hospital stay. DISPOSITION-anticipate discharge to home after the hospital stay. - Mortality Measure Prognosis:: Good
[2019-09-19] MEDS ORDERED: Haloperidol 1 MG Tab PO PRN (19:44)
[2019-09-19] MEDS ORDERED: Enoxaparin 40 MG/0.4 ML Syringe SUBCUT SCH (19:44)
[2019-09-19] MEDS ORDERED: Acetaminophen 325 MG Tab PO PRN (19:44)
[2019-09-19] MEDS ORDERED: oxyCODONE 5 MG Tab PO PRN (19:44)
[2019-09-19] MEDS ORDERED: Ondansetron 4 MG/2 ML SDV IV PRN (19:44)
[2019-09-19] MEDS ORDERED: Polyethylene Glycol 3350 Powder 17 GM Packet PO PRN (19:44)
[2019-09-19] MEDS ORDERED: Sodium Chloride 0.9% 10 ML Syringe FLUSH PRN (19:44)
[2019-09-19] MEDS: Sodium Chloride 0.9% 1,000 ML IV SCH (20:31)
[2019-09-19] MEDS: Ampicillin/Sulbactam Na 1.5 GM in Sodium Chloride 0.9% 50 ML IV SCH (20:34)
[2019-09-19] MEDS: traZODone 50 MG Tab PO SCH (20:41)
[2019-09-19] MEDS: Melatonin 3 MG Tab PO SCH (20:41)
[2019-09-19] MEDS: Pantoprazole 40 MG Tab.CR PO SCH (20:41)
[2019-09-19] MEDS: Mirtazapine 15 MG Tab PO SCH (20:41)
[2019-09-20] MEDS: Ampicillin/Sulbactam Na 1.5 GM in Sodium Chloride 0.9% 50 ML IV SCH ×3 (01:47→14:38)
[2019-09-20] MEDS: Sodium Chloride 0.9% 1,000 ML IV SCH ×2 (05:18→14:19)
[2019-09-20] MEDS ORDERED: Potassium Chloride 20 MEQ in Premix Bag 1 BAG IV ONE ×2 (06:12→08:15)
[2019-09-20] MEDS ORDERED: Potassium Chloride 20 MEQ Tab.ER PO ONE ×2 (06:12→18:25)
[2019-09-20] MEDS ORDERED: Potassium Chloride 20 MEQ, Lidocaine 1% 2 ML in Sodium Chloride 0.9% 100 ML IV ONE ×2 (07:15→10:00)
[2019-09-20] MEDS: Pantoprazole 40 MG Tab.CR PO SCH (09:56)
--- NOTE | 2019-09-20 11:01 | MR ---
Cholangiopancreatography CLINICAL HISTORY: Pancreatitis, abnormal liver function test COMPARISON: CT abdomen 09/19/2019 TECHNIQUE: Multiple images of the biliary system were obtained. All images were obtained on a 1.5 Raegan Siemens unit. FINDINGS: There are multiple filling defects in the dependent portion of the gallbladder suggesting numerous tiny stones. Some of this could be due to artifactual due to moderate breathing motion artifact. There is no intrahepatic ductal dilatation. The common bile duct measures 7 mm distally. The pancreatic duct within the pancreatic head measures 5 mm. Measures 4 mm the pancreatic body and tapers smoothly. No filling defects are identified. Pancreas has a normal contour. There are multiple renal cysts. IMPRESSION: Moderate breathing motion artifact There is some filling defect in the dependent portion of the gallbladder which could be due to the above artifact. Layering of small stones is not excluded. Borderline common duct dilatation at 7 mm Pancreatic ductal dilatation without focal mass or encasement. There are no filling defects
[2019-09-20] MEDS ORDERED: Enoxaparin 40 MG/0.4 ML Syringe SUBCUT SCH (17:00)
--- NOTE | 2019-09-20 18:31 | PCM.PN ---
- General Info Date of Service: 09/20/19 Subjective Update: Mr. Miles has been stable since admission, afebrile and hemodynamically stable. Lipase and liver studies have improved from admission. He is unable to provide a meaningful history concerning symptoms or review of systems because of his dementia. - Patient Data Vitals - Most Recent: Last Vital Signs Temp 97.3 F 09/20/19 14:35 Pulse 58 L 09/20/19 14:35 Resp 18 09/20/19 14:35 BP 163/72 H 09/20/19 14:35 Pulse Ox 95 09/20/19 14:35 Weight - Most Recent: 195 lb 7.989 oz I&O - Last 24 Hours: Intake & Output 09/20/19 09/20/19 09/20/19 06:59 14:59 22:59 Intake Total 457 840 6975 Balance 592 463 1025 Lab Results Last 24 Hours: Laboratory Results - last 24 hr 09/20/19 09/20/19 09/20/19 Range/Units 05:00 05:00 05:00 WBC 6.0 (4.5-11.0) K/uL RBC 4.64 (4.30-5.90) M/uL Hgb 13.5 (12.0-15.0) g/dL Hct 41.8 (40.0-54.0) % MCV 90 (80-98) fL MCH 29 (27-31) pg MCHC 32 (32-36) % Plt Count 195 (150-400) K/uL Neut % (Auto) 66 (36-66) % Lymph % (Auto) 20 L (24-44) % [place] % (Auto) 10 H (2-6) % Eos % (Auto) 4 (2-4) % Baso % (Auto) 0 (0-1) % Sodium 144 (140-148) mmol/L Potassium 2.9 L* (3.6-5.2) mmol/L Chloride 112 H (100-108) mmol/L Carbon Dioxide 22 (21-32) mmol/L Anion Gap 12.9 (5.0-14.0) mmol/L BUN 14 (7-18) mg/dL Creatinine 0.9 (0.8-1.3) mg/dL Est Cr Clr Drug Dosing 57.00 mL/min Estimated GFR (MDRD) > 60 (>60) Glucose 86 (74-106) mg/dL Calcium 7.8 L (8.5-10.1) mg/dL Total Bilirubin 1.8 H (0.2-1.0) mg/dL AST 104 H (15-37) U/L ALT 235 H (12-78) U/L Alkaline Phosphatase 248 H (46-116) U/L Total Protein 5.4 L (6.4-8.2) g/dL Albumin 2.4 L (3.4-5.0) g/dL Globulin 3.0 (2.3-3.5) g/dL Albumin/Globulin Ratio 0.8 L (1.2-2.2) Lipase 1359 H (73-393) U/L Med Orders - Current: Current Medications Acetaminophen (Tylenol) 650 mg PO Q4H PRN PRN Reason: Pain (Mild 1-3)/fever Enoxaparin Sodium (Lovenox) 40 mg SUBCUT QPM [facility] Last Admin: 09/20/19 16:14 Dose: 40 mg Documented by: Haloperidol (Haldol) 1 mg PO Q2H PRN PRN Reason: Agitation Melatonin (Melatonin) 9 mg PO BEDTIME [facility] Last Admin: 09/19/19 20:41 Dose: 9 mg Documented by: Mirtazapine (Remeron) 15 mg PO BEDTIME [facility] Last Admin: 09/19/19 20:41 Dose: 15 mg Documented by: Ondansetron HCl (Zofran) 4 mg IV Q4H PRN PRN Reason: Nausea/Vomiting Last Admin: 09/20/19 16:46 Dose: 4 mg Documented by: Oxycodone HCl (Oxycodone) 5 mg PO Q4H PRN PRN Reason: Pain (moderate 4-6) Pantoprazole Sodium (Protonix) 40 mg PO ACBREAKFAST [facility] Last Admin: 09/20/19 09:56 Dose: 40 mg Documented by: Polyethylene Glycol (Miralax) 17 gm PO DAILY PRN PRN Reason: Constipation Potassium Chloride (Klor-Con M20) 40 meq PO ONETIME ONE Stop: 09/20/19 18:26 Sodium Chloride (Saline Flush) 10 ml FLUSH ASDIRECTED PRN PRN Reason: Keep Vein Open Trazodone HCl (Trazodone) 50 mg PO BEDTIME [facility] Last Admin: 09/19/19 20:41 Dose: 50 mg Documented by: Discontinued Medications Enoxaparin Sodium (Lovenox) 40 mg SUBCUT DAILY [facility] Last Admin: 09/19/19 20:40 Dose: 40 mg Documented by: Sodium Chloride (Normal Saline) 1,000 mls @ 500 mls/hr IV ASDIRECTED [facility] Last Admin: 09/19/19 17:31 Dose: 500 mls/hr Documented by: Sodium Chloride (Normal Saline) 87 mls @ 3 mls/sec IV ASDIRECTED [facility] Stop: 09/19/19 17:01 Last Admin: 09/19/19 17:15 Dose: 3 mls/sec Documented by: Sodium Chloride (Normal Saline) 1,000 mls @ 125 mls/hr IV ASDIRECTED [facility] Last Admin: 09/20/19 14:19 Dose: 125 mls/hr Documented by: Ampicillin Sodium/Sulbactam (Sodium 1.5 gm/ Sodium Chloride) 50 mls @ 100 mls/hr IV Q6H [facility] Last Admin: 09/20/19 14:38 Dose: 100 mls/hr Documented by: Potassium Chloride 20 meq/ (Premix) 100 mls @ 50 mls/hr IV ONETIME ONE Stop: 09/20/19 10:14 Potassium Chloride 20 meq/Lidocaine HCl 2 ml/ Sodium Chloride 112 mls @ 56 mls/hr IV ONETIME ONE Stop: 09/20/19 08:11 Last Admin: 09/20/19 07:35 Dose: 56 mls/hr Documented by: Potassium Chloride 20 meq/Lidocaine HCl 2 ml/ Sodium Chloride 112 mls @ 56 mls/hr IV ONETIME ONE Stop: 09/20/19 11:59 Last Admin: 09/20/19 11:00 Dose: 56 mls/hr Documented by: Iopamidol (Isovue-300 (61%)) 123 ml IV . DIRECTED [facility] Stop: 09/19/19 17:01 Last Admin: 09/19/19 17:16 Dose: 150 ml Documented by: Lidocaine HCl (Xylocaine-Mpf 1%) 5 ml INJECT ONETIME ONE Stop: 09/20/19 06:16 Last Admin: 09/20/19 08:44 Dose: Not Given Documented by: Potassium Chloride (Klor-Con M20) 40 meq PO ONETIME ONE Stop: 09/20/19 06:13 Last Admin: 09/20/19 06:36 Dose: 40 meq Documented by: Sodium Chloride (Saline Flush) 10 ml FLUSH ONETIME ONE Stop: 09/19/19 16:58 Last Admin: 09/19/19 17:15 Dose: 10 ml Documented by: - Exam Quality Assessment: DVT Prophylaxis General: Alert, Cooperative, No Acute Distress. No: Oriented Lungs: Clear to Auscultation, Normal Respiratory Effort Cardiovascular: Regular Rate, Regular Rhythm, No Murmurs GI/Abdominal Exam: Soft, Non-Tender, No Organomegaly, No Distention Extremities: Non-Tender, No Pedal Edema Sepsis Event Note - Evaluation Sepsis Screening Result: No Definite Risk - Focused Exam Vital Signs: Vital Signs Temp Pulse Resp BP Pulse Ox 09/20/19 14:35 97.3 F 58 L 18 163/72 H 95 09/20/19 10:50 97.9 F 62 18 137/76 92 L 09/20/19 07:37 98.4 F 61 18 138/69 93 L Date Exam was Performed: 09/20/19 Time Exam was Performed: 18:26 - Problem List Review Problem List Initiated/Reviewed/Updated: Yes - My Orders Last 24 Hours: My Active Orders 09/19/19 18:45 Resuscitation Status Routine 09/19/19 19:44 Acetaminophen [Tylenol] 650 mg PO Q4H PRN Ondansetron [Zofran] 4 mg IV Q4H PRN Pantoprazole [ProTONIX] 40 mg PO ACBREAKFAST Sodium Chloride 0.9% [Saline Flush] 10 ml FLUSH ASDIRECTED PRN haloperidoL [Haldol] 1 mg PO Q2H PRN oxyCODONE 5 mg PO Q4H PRN polyethylene glycoL 3350 [MiraLAX] 17 gm PO DAILY PRN 09/19/19 19:44 Patient Status [ADT] Routine Ambulate [RC] QID Height and Weight [RC] 0500 Intake and Output [RC] QSHIFT Notify Provider Vital Signs [RC] ASDIRECTED Oxygen Therapy [RC] PRN Peripheral IV Care [RC] . DIRECTED Up With Assistance [RC] ASDIRECTED Up to Chair [RC] QID VTE/DVT Education [RC] Per Unit Routine Vital Signs [RC] Q4H Peripheral IV Insertion Adult [OM.PC] Routine 09/19/19 21:00 Melatonin 9 mg PO BEDTIME Mirtazapine [Remeron] 15 mg PO BEDTIME traZODone 50 mg PO BEDTIME 09/20/19 Dinner Regular Diet [DIET] Enoxaparin [Lovenox] 40 mg SUBCUT QPM 09/20/19 18:24 Convert IV to Saline Lock [OM.PC] Routine 09/20/19 18:25 Potassium Chloride [Klor-Con M20] 40 meq PO ONETIME ONE 09/21/19 05:00 COMPREHENSIVE METABOLIC PN,CMP [CHEM] Timed LIPASE [CHEM] Timed - Plan Plan:: ASSESSMENT AND PLAN PANCREATITIS AND ELEVATED LIVER STUDIES-MRCP obtained earlier today shows no evidence of obstruction or stone. Lipase and liver studies have improved from admission. -Pain and nausea medication as needed -Reassess lipase and liver studies in a.m. -Regular diet -Saline lock IV POSSIBLE BLADDER MASS-incidental finding noted on CT scan. Discussed results with his son, family would like further evaluation with urology -Outpatient urology consult DEMENTIA -Continue outpatient medications -Melatonin 9 mg p.o. nightly -Haldol as needed MAINTENANCE ISSUES -DVT prophylaxis; Lovenox 40 mg subcu daily -GI prophylaxis; Protonix 40 mg p.o. daily -Duvall catheter; not indicated -Nutrition; n.p.o. until after MRCP -Nicotine dependence; not required CODE STATUS-DNR/DNI ADMISSION STATUS-patient will be admitted to inpatient status, expect at least a 2 night hospital stay for evaluation and management of problems as outlined above. At the time of this admission I do not reasonably expected evaluation and management of this problem will require more than a 96 hour hospital stay. DISPOSITION-anticipate discharge to home after the hospital stay.
[2019-09-20] MEDS: Melatonin 3 MG Tab PO SCH (21:03)
[2019-09-20] MEDS: traZODone 50 MG Tab PO SCH (21:03)
[2019-09-20] MEDS: Mirtazapine 15 MG Tab PO SCH (21:04)
[2019-09-21] MEDS: Pantoprazole 40 MG Tab.CR PO SCH (07:16)
[2019-09-21 14:32] VITALS: BP 138/72; PULSE 63
--- NOTE | 2019-09-21 15:04 | PCM.DCSUM1 ---
Discharge Summary - Hospital Course Brief History: Mr. Miles is an 84-year-old gentleman who was admitted through the emergency department for further evaluation of pancreatitis and liver enzyme elevation. - Discharge Data Discharge Date: 09/21/19 Discharge Disposition: DC/Tfer to Longterm Care [facility] Condition: Fair - Referral to Home Health Primary Care Physician: PCP None - Discharge Diagnosis/Problem(s) (1) Common bile duct calculus SNOMED Code(s): 499564254 ICD Code: K80.50 - CALCULUS OF BILE DUCT W/O CHOLANGITIS OR CHOLECYST W/O OBST Status: Acute Current Visit: Yes (2) Liver enzyme elevation SNOMED Code(s): 718609930 ICD Code: R74.8 - ABNORMAL LEVELS OF OTHER SERUM ENZYMES Status: Acute Current Visit: Yes (3) Bladder mass SNOMED Code(s): 664975054 ICD Code: N32.89 - OTHER SPECIFIED DISORDERS OF BLADDER Status: Acute Current Visit: Yes (4) Alzheimer disease SNOMED Code(s): 58732505 ICD Code: G30.9 - ALZHEIMER'S DISEASE, UNSPECIFIED Status: Chronic Current Visit: No - Patient Summary/Data Hospital Course: Mr. Miles is an 84-year-old gentleman who was admitted through the emergency department with a recent history of abdominal pain and nausea. He actually felt somewhat better today and denied significant pain, but labs were obtained and showed elevation in bilirubin as well as other liver studies and increase in amylase level. On further evaluation in the emergency department CT scan does show some dilatation of the pancreatic duct and subtle enlargement of the pancreatic head. ER provider did contact the family as the patient is noted to be comfort cares only. They requested hospitalization and further evaluation before deciding on a course of action and potential treatment. Mr. Miles is unable to provide a meaningful history concerning recent symptoms or review of systems because of his underlying dementia. On admission he was kept n.p.o. and given IV fluids for hydration. Following day MRCP was obtained which showed no obvious obstruction of the common duct. There was some mild dilatation of the pancreatic duct, no dilatation of the hepatic ducts. He was started on a regular diet which he tolerated well and had no symptoms of abdominal pain nausea or vomiting. As an incidental finding noted on the CT scan of the abdomen from the emergency department he was noted to have a possible bladder mass. I did discuss that finding with the family and they have requested that he be scheduled for an outpatient urology consult for further evaluation. It was felt very likely that he had passed a common duct stone causing the pancreatitis as well as liver enzyme elevation. Activity will be as tolerated and he will resume his usual diet. Follow-up with primary care will be as needed. Follow-up CMP and lipase level will be obtained in 1 week. - Patient Instructions Diet: Usual Diet as Tolerated Activity: As Tolerated Other/Special Instructions: Follow-up lab in 1 week; CMP and lipase - Discharge Plan *PRESCRIPTION DRUG MONITORING PROGRAM REVIEWED*: Not Applicable *COPY OF PRESCRIPTION DRUG MONITORING REPORT IN PATIENT VINCENT: Not Applicable Home Medications: Home Meds Mirtazapine [Remeron] 15 mg PO BEDTIME 09/19/19 [History] Omeprazole 20 mg PO BEDTIME 09/19/19 [History] traZODone HCl [Trazodone HCl] 50 mg PO BEDTIME 09/19/19 [History] - Discharge Summary/Plan Comment DC Time >30 min.: No - Patient Data Vitals - Most Recent: Last Vital Signs Temp 97.2 F 09/21/19 14:31 Pulse 63 09/21/19 14:31 Resp 18 09/21/19 14:31 BP 138/72 09/21/19 14:31 Pulse Ox 94 L 09/21/19 14:31 Weight - Most Recent: 195 lb 1.6 oz I&O - Last 24 hours: Intake & Output 09/21/19 09/21/19 09/21/19 06:59 14:59 22:59 Intake Total 840 Balance 840 Lab Results - Last 24 hrs: Laboratory Results - last 24 hr 09/21/19 Range/Units 05:53 Sodium 144 (140-148) mmol/L Potassium 3.8 (3.6-5.2) mmol/L Chloride 112 H (100-108) mmol/L Carbon Dioxide 21 (21-32) mmol/L Anion Gap 14.8 H (5.0-14.0) mmol/L BUN 14 (7-18) mg/dL Creatinine 0.9 (0.8-1.3) mg/dL Est Cr Clr Drug Dosing 57.21 mL/min Estimated GFR (MDRD) > 60 (>60) Glucose 81 (74-106) mg/dL Calcium 7.9 L (8.5-10.1) mg/dL Total Bilirubin 1.4 H (0.2-1.0) mg/dL AST 73 H (15-37) U/L ALT 190 H (12-78) U/L Alkaline Phosphatase 231 H (46-116) U/L Total Protein 5.5 L (6.4-8.2) g/dL Albumin 2.3 L (3.4-5.0) g/dL Globulin 3.2 (2.3-3.5) g/dL Albumin/Globulin Ratio 0.7 L (1.2-2.2) Lipase 906 H (73-393) U/L Med Orders - Current: Current Medications Acetaminophen (Tylenol) 650 mg PO Q4H PRN PRN Reason: Pain (Mild 1-3)/fever Enoxaparin Sodium (Lovenox) 40 mg SUBCUT QPM [facility] Last Admin: 09/20/19 16:14 Dose: 40 mg Documented by: Haloperidol (Haldol) 1 mg PO Q2H PRN PRN Reason: Agitation Melatonin (Melatonin) 9 mg PO BEDTIME [facility] Last Admin: 09/20/19 21:03 Dose: 9 mg Documented by: Mirtazapine (Remeron) 15 mg PO BEDTIME [facility] Last Admin: 09/20/19 21:04 Dose: 15 mg Documented by: Ondansetron HCl (Zofran) 4 mg IV Q4H PRN PRN Reason: Nausea/Vomiting Last Admin: 09/20/19 16:46 Dose: 4 mg Documented by: Oxycodone HCl (Oxycodone) 5 mg PO Q4H PRN PRN Reason: Pain (moderate 4-6) Pantoprazole Sodium (Protonix) 40 mg PO ACBREAKFAST [facility] Last Admin: 09/21/19 07:16 Dose: 40 mg Documented by: Polyethylene Glycol (Miralax) 17 gm PO DAILY PRN PRN Reason: Constipation Sodium Chloride (Saline Flush) 10 ml FLUSH ASDIRECTED PRN PRN Reason: Keep Vein Open Trazodone HCl (Trazodone) 50 mg PO BEDTIME [facility] Last Admin: 09/20/19 21:03 Dose: 50 mg Documented by: Discontinued Medications Enoxaparin Sodium (Lovenox) 40 mg SUBCUT DAILY [facility] Last Admin: 09/19/19 20:40 Dose: 40 mg Documented by: Sodium Chloride (Normal Saline) 1,000 mls @ 500 mls/hr IV ASDIRECTED [facility] Last Admin: 09/19/19 17:31 Dose: 500 mls/hr Documented by: Sodium Chloride (Normal Saline) 87 mls @ 3 mls/sec IV ASDIRECTED [facility] Stop: 09/19/19 17:01 Last Admin: 09/19/19 17:15 Dose: 3 mls/sec Documented by: Sodium Chloride (Normal Saline) 1,000 mls @ 125 mls/hr IV ASDIRECTED [facility] Last Admin: 09/20/19 14:19 Dose: 125 mls/hr Documented by: Ampicillin Sodium/Sulbactam (Sodium 1.5 gm/ Sodium Chloride) 50 mls @ 100 mls/hr IV Q6H [facility] Last Admin: 09/20/19 14:38 Dose: 100 mls/hr Documented by: Potassium Chloride 20 meq/ (Premix) 100 mls @ 50 mls/hr IV ONETIME ONE Stop: 09/20/19 10:14 Potassium Chloride 20 meq/Lidocaine HCl 2 ml/ Sodium Chloride 112 mls @ 56 mls/hr IV ONETIME ONE Stop: 09/20/19 08:11 Last Admin: 09/20/19 07:35 Dose: 56 mls/hr Documented by: Potassium Chloride 20 meq/Lidocaine HCl 2 ml/ Sodium Chloride 112 mls @ 56 mls/hr IV ONETIME ONE Stop: 09/20/19 11:59 Last Admin: 09/20/19 11:00 Dose: 56 mls/hr Documented by: Iopamidol (Isovue-300 (61%)) 123 ml IV . DIRECTED [facility] Stop: 09/19/19 17:01 Last Admin: 09/19/19 17:16 Dose: 150 ml Documented by: Lidocaine HCl (Xylocaine-Mpf 1%) 5 ml INJECT ONETIME ONE Stop: 09/20/19 06:16 Last Admin: 09/20/19 08:44 Dose: Not Given Documented by: Potassium Chloride (Klor-Con M20) 40 meq PO ONETIME ONE Stop: 09/20/19 06:13 Last Admin: 09/20/19 06:36 Dose: 40 meq Documented by: Potassium Chloride (Klor-Con M20) 40 meq PO ONETIME ONE Stop: 09/20/19 18:26 Last Admin: 09/20/19 18:45 Dose: 40 meq Documented by: Sodium Chloride (Saline Flush) 10 ml FLUSH ONETIME ONE Stop: 09/19/19 16:58 Last Admin: 09/19/19 17:15 Dose: 10 ml Documented by: - Exam General: Reports: Alert, Cooperative, No Acute Distress. Denies: Oriented Lungs: Reports: Clear to Auscultation, Normal Respiratory Effort Cardiovascular: Reports: Regular Rate, Regular Rhythm, No Murmurs GI/Abdominal Exam: Soft, Non-Tender, No Organomegaly, No Distention
== END 2019-09-21 15:34 | DRG 440 ==
LOC: JP.ED 13:56 → JP.MS 18:41
PROVIDERS: ADMIT Hospitalist; ATTEND Hospitalist
DX: K85.90 Acute pancreatitis without necrosis or infection, unspecified (principal); K80.50 Calculus of bile duct without cholangitis or cholecystitis without obstruction; N32.89 Other specified disorders of bladder; G30.9 Alzheimer's disease, unspecified; Z51.5 Encounter for palliative care; F02.80 Dementia in other diseases classified elsewhere, unspecified severity, without behavioral disturbance, psychotic disturbance, mood disturbance, and anxiety; I10 Essential (primary) hypertension; F41.9 Anxiety disorder, unspecified; F32.9 Major depressive disorder, single episode, unspecified; Z86.73 Personal history of transient ischemic attack (TIA), and cerebral infarction without residual deficits; Z86.718 Personal history of other venous thrombosis and embolism; Z86.711 Personal history of pulmonary embolism
CPT/HCPCS: 36415; 74177; 80048; 80076; 83605; 83690; 83735; 83880; 84484; 85025; 85610; 86140; 93005; 93010; 96360; 99284; 99285; J7030; J7050; Q9967; 74181; 74181-26; 80053; 82962; A9270-GY; J0287; J1650; J2001; J2405; J3480

== ENCOUNTER 2019-11-08 17:00 | Inpatient (IN) | payer MEDICARE ==
--- NOTE | 2019-11-08 17:21 | EDM.PDOC ---
<Pee Hunter - Last Filed: 11/08/19 18:44> ED HPI GENERAL MEDICAL PROBLEM - General Chief Complaint: Abdominal Pain Stated Complaint: [facility] Time Seen by Provider: 11/08/19 17:20 Source of Information: Reports: Patient History Limitations: Reports: No Limitations, Other (dementia) - History of Present Illness Onset: Today Duration: Getting Worse Location: Reports: Abdomen Quality: Reports: Ache Associated Symptoms: Reports: Confusion, Fever/Chills, Nausea/Vomiting Abdominal Pain Score (Numeric/FACES): 9 - Related Data Allergies Allergy/AdvReac Type Severity Reaction Status Date / Time No Known Allergies Allergy Verified 11/08/19 17:44 Home Meds: Home Meds Mirtazapine [Remeron] 15 mg PO BEDTIME 09/19/19 [History] Omeprazole 20 mg PO BEDTIME 09/19/19 [History] traZODone HCl [Trazodone HCl] 50 mg PO BEDTIME 09/19/19 [History] Past Medical History HEENT History: Reports: Hard of Hearing, Impaired Vision Cardiovascular History: Reports: Hypertension Respiratory History: Reports: PE Musculoskeletal History: Reports: Other (See Below) Other Musculoskeletal History: facial bones Neurological History: Reports: Alzheimers Disease, Concussion, TIA Psychiatric History: Reports: Alzheimers Disease, Anxiety, Depression Other Hematologic History: DVT AND PE - Infectious Disease History Infectious Disease History: Reports: Chicken Pox, Measles, Shingles - Past Surgical History Other HEENT Surgeries/Procedures: 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 Denies: Fever Respiratory: Reports: No Symptoms Cardiovascular: Reports: No Symptoms GI/Abdominal: Reports: Abdominal Pain, Anorexia, Nausea. Denies: Vomiting : Reports: Pain (R scrotal pain) Skin: Reports: No Symptoms Neurological: Reports: Confusion Psychiatric: Reports: Anxiety, Confusion ED EXAM, GI/ABD - Physical Exam Exam: See Below Exam Limited By: Other (dementia) General Appearance: Alert, WD/WN, Anxious, Moderate Distress Eyes: Bilateral: EOMI (L ptosis) Ears: Normal External Exam Nose: Normal Inspection, Normal Mucosa Throat/Mouth: Normal Inspection Head: Atraumatic, Normocephalic Respiratory/Chest: No Respiratory Distress, Lungs Clear Cardiovascular: Normal Peripheral Pulses, Regular Rate, Rhythm GI/Abdominal Exam: Guarding, Tender (RLQ), Other (Well healed surgical scar RLQ) (Male) Exam: Normal Inspection, Scrotum Tenderness (R). No: Hernia Extremities: Normal Inspection Neurological: Alert, Slow to Respond. No: Oriented, Normal Cognition Psychiatric: Anxious Skin Exam: Warm, Dry, Intact Course - Vital Signs Text/Narrative:: Initial differential Dx: SBO, internal hernia, Pancreatitis, Kidney stone. Discussed pt. w/Dr. Officer who will followup lab and CT results and make final disposition. Departure - Departure Disposition: Admitted As Inpatient 64 Clinical Impression: Bladder mass Closed right hip fracture Qualifiers: Encounter type: initial encounter Qualified Code(s): S72.001A - Fracture of unspecified part of neck of right femur, initial encounter for closed fracture - Discharge Information Referrals: Sudhakar Rondon MD [Primary Care Provider] - Forms: ED Department Discharge Sepsis Event Note (ED) - Evaluation Sepsis Screening Result: No Definite Risk <GennarorJamin - Last Filed: 11/08/19 20:11> Course - Vital Signs Last Recorded V/S: Last Vital Signs Temp 98.5 F 11/08/19 17:16 Pulse 99 11/08/19 19:18 Resp 16 11/08/19 17:16 BP 130/74 11/08/19 19:18 Pulse Ox 92 L 11/08/19 19:18 - Orders/Labs/Meds Orders: Active Orders 24 hr Category Date Time Status Iopamidol [Isovue-300 (61%)] Med 11/08/19 17:45 Active 100 ml IV . DIRECTED Sodium Chloride 0.9% [Normal Saline] 1,000 ml Med 11/08/19 17:30 Active IV ASDIRECTED Sodium Chloride 0.9% [Normal Saline] 80 ml Med 11/08/19 17:45 Active IV ASDIRECTED Medication Orders Sodium Chloride (Normal Saline) 1,000 mls @ 500 mls/hr IV ASDIRECTED WINDY Last Admin: 11/08/19 18:16 Dose: 500 mls/hr Documented by: PREILOR Sodium Chloride (Normal Saline) 80 mls @ 3.5 mls/sec IV ASDIRECTED WINDY Last Admin: 11/08/19 18:51 Dose: 3.5 mls/sec Documented by: MYKLALY Iopamidol (Isovue-300 (61%)) 100 ml IV . DIRECTED WINDY Last Admin: 11/08/19 18:51 Dose: 100 ml Documented by: BRII Labs: Laboratory Tests 11/08/19 11/08/19 11/08/19 Range/Units 17:39 17:39 17:39 WBC 11.6 H (4.5-11.0) K/uL RBC 5.43 (4.30-5.90) M/uL Hgb 15.9 H D (12.0-15.0) g/dL Hct 49.4 (40.0-54.0) % MCV 91 (80-98) fL MCH 29 (27-31) pg MCHC 32 (32-36) % Plt Count 193 (150-400) K/uL PT 10.7 (9.5-12.0) sec INR 0.98 (0.80-1.20) Sodium (140-148) mmol/L Potassium (3.6-5.2) mmol/L Chloride (100-108) mmol/L Carbon Dioxide (21-32) mmol/L Anion Gap (5.0-14.0) mmol/L BUN (7-18) mg/dL Creatinine (0.8-1.3) mg/dL Est Cr Clr Drug Dosing mL/min Estimated GFR (MDRD) (>60) Glucose (74-106) mg/dL Lactic Acid (0.4-2.0) mmol/L Calcium (8.5-10.1) mg/dL Total Bilirubin (0.2-1.0) mg/dL AST (15-37) U/L ALT (12-78) U/L Alkaline Phosphatase (46-116) U/L Total Protein (6.4-8.2) g/dL Albumin (3.4-5.0) g/dL Globulin (2.3-3.5) g/dL Albumin/Globulin Ratio (1.2-2.2) Lipase 96 (73-393) U/L Urine Color (YELLOW) Urine Appearance (CLEAR) Urine pH (5.0-8.0) Ur Specific Weiser (1.008-1.030) Urine Protein (NEGATIVE) mg/dL Urine Glucose (UA) (NEGATIVE) mg/dL Urine Ketones (NEGATIVE) mg/dL Urine Occult Blood (NEGATIVE) Urine Nitrite (NEGATIVE) Urine Bilirubin (NEGATIVE) Urine Urobilinogen (0.2-1.0) EU/dL Ur Leukocyte Esterase (NEGATIVE) Urine RBC (0-5) Urine WBC (0-5) Ur Epithelial Cells Amorphous Sediment Urine Bacteria Urine Mucus 11/08/19 11/08/19 11/08/19 Range/Units 17:39 17:39 19:17 WBC (4.5-11.0) K/uL RBC (4.30-5.90) M/uL Hgb (12.0-15.0) g/dL Hct (40.0-54.0) % MCV (80-98) fL MCH (27-31) pg MCHC (32-36) % Plt Count (150-400) K/uL PT (9.5-12.0) sec INR (0.80-1.20) Sodium 140 (140-148) mmol/L Potassium 4.2 (3.6-5.2) mmol/L Chloride 104 (100-108) mmol/L Carbon Dioxide 28 (21-32) mmol/L Anion Gap 7.8 (5.0-14.0) mmol/L BUN 11 (7-18) mg/dL Creatinine 1.2 (0.8-1.3) mg/dL Est Cr Clr Drug Dosing 44.91 mL/min Estimated GFR (MDRD) 57 L (>60) Glucose 121 H (74-106) mg/dL Lactic Acid 2.4 H (0.4-2.0) mmol/L Calcium 8.7 (8.5-10.1) mg/dL Total Bilirubin 0.8 (0.2-1.0) mg/dL AST 28 (15-37) U/L ALT 31 (12-78) U/L Alkaline Phosphatase 102 (46-116) U/L Total Protein 6.7 (6.4-8.2) g/dL Albumin 3.6 (3.4-5.0) g/dL Globulin 3.1 (2.3-3.5) g/dL Albumin/Globulin Ratio 1.2 (1.2-2.2) Lipase (73-393) U/L Urine Color Yellow (YELLOW) Urine Appearance Clear (CLEAR) Urine pH 8.5 H (5.0-8.0) Ur Specific Weiser 1.020 (1.008-1.030) Urine Protein 30 H (NEGATIVE) mg/dL Urine Glucose (UA) Negative (NEGATIVE) mg/dL Urine Ketones Negative (NEGATIVE) mg/dL Urine Occult Blood Negative (NEGATIVE) Urine Nitrite Negative (NEGATIVE) Urine Bilirubin Negative (NEGATIVE) Urine Urobilinogen 0.2 (0.2-1.0) EU/dL Ur Leukocyte Esterase Negative (NEGATIVE) Urine RBC 0-5 (0-5) Urine WBC 0-5 (0-5) Ur Epithelial Cells Rare Amorphous Sediment Not seen Urine Bacteria Not seen Urine Mucus Rare Meds: Medications Generic Name Dose Route Start Last Admin Trade Name Freq PRN Reason Stop Dose Admin Sodium Chloride 1,000 mls @ 500 mls/hr 11/08/19 17:30 11/08/19 18:16 Normal Saline IV 500 mls/hr ASDIRECTED WINDY Administration Sodium Chloride 80 mls @ 3.5 mls/sec 11/08/19 17:45 11/08/19 18:51 Normal Saline IV 3.5 mls/sec ASDIRECTED WINDY Administration Iopamidol 100 ml 11/08/19 17:45 11/08/19 18:51 Isovue-300 (61%) IV 100 ml . DIRECTED WINDY Administration Discontinued Medications Generic Name Dose Route Start Last Admin Trade Name Freq PRN Reason Stop Dose Admin Hydromorphone HCl 0.5 mg 11/08/19 17:27 11/08/19 18:18 Dilaudid IVPUSH 11/08/19 17:28 0.5 mg ONETIME ONE Administration Ondansetron HCl 4 mg 11/08/19 17:27 11/08/19 18:17 Zofran IVPUSH 11/08/19 17:28 4 mg ONETIME ONE Administration Departure - Departure Time of Disposition: 20:11 Condition: Poor Sepsis Event Note (ED) - Focused Exam Vital Signs: Vital Signs Temp Pulse Resp BP Pulse Ox 11/08/19 19:18 99 130/74 92 L 11/08/19 18:40 96 155/86 H 89 L 11/08/19 17:16 98.5 F 84 16 159/94 H 92 L 08/11/20 17:12 98.5 F 84 16 159/94 H 92 L - Assessment/Plan Plan: Assessment Acuity = acute Site and laterality = right hip fracture impacted femoral neck complicated in a gentleman with severe Alzheimer's Etiology = unknown Manifestations = none Location of injury = Home Lab values = CBC unremarkable lactic acid elevated 2.4 consistent lactic acidosis urinalysis unremarkable CT scan describes a fracture above Plan Call discussed case with family they would like to consult with other family members before making a decision I laid out options which include complete fix of the hip versus pinning the hip for pain control or doing nothing. In the meantime we will admit him to the hospital discussed case with Dr. Austin at 2005 kindly agreed to come and evaluate the patient in the hospital for admission. This note was dictated using [employer] voice recognition software please call with any questions on syntax or grammar.
[2019-11-08] MEDS ORDERED: HYDROmorphone 0.5 MG/0.5 ML Syringe IVPUSH ONE (17:27)
[2019-11-08] MEDS ORDERED: Ondansetron 4 MG/2 ML SDV IVPUSH ONE (17:27)
[2019-11-08] MEDS ORDERED: Sodium Chloride 0.9% 1,000 ML IV SCH (17:30)
[2019-11-08] MEDS ORDERED: Sodium Chloride 0.9% 80 ML IV SCH (17:45)
[2019-11-08] MEDS ORDERED: Iopamidol 612 MG/ML 100 ML Bottle IV SCH (17:45)
--- NOTE | 2019-11-08 19:43 | CRLCT ---
INDICATION: Right lower quadrant abdominal pain. Patient has dementia. COMPARISON: 09/19/2019 TECHNIQUE: CT examination of the abdomen and pelvis was performed with the uneventful intravenous administration of 100 cc of Isovue-300 while 3 mm thick axial sections were obtained from the lung bases through the pubic symphysis. Oral contrast was not administered. Please note that all CT scans at this facility use dose modulation, iterative reconstruction, and/or weight-based dosing when appropriate to reduce radiation dose to as low as reasonably achievable. FINDINGS: In the abdomen, the liver, spleen, pancreas, and left adrenal are normal in appearance. There continues to be nodular enlargement of the right adrenal gland measuring 2.9 x 2.1 centimeters, most likely several small adrenal adenomas. 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 Again seen is the large simple cyst arising from the lower pole of the left kidney measuring up to 7.2 centimeters. Several other much smaller cysts arise from both kidneys, more numerous on the left than the right. There is no sign of any The gallbladder is normal in appearance. The abdominal aorta is normal in caliber with no sign of dilatation. There is no sign of retroperitoneal mass or adenopathy. The stomach, loops of small bowel, and colon in the abdomen are normal in appearance. In the pelvis, the appendix is nonvisualized, but there is no sign of an inflammatory process in the area of the appendix. The loops of small bowel and colon in the pelvis are normal in appearance. Again seen is prominent enlargement of the prostate with protrusion of an a prominently enlarged central lobe of the prostate into the base of the urinary bladder. Again seen is the rounded soft tissue mass in the inferior urinary bladder located anterior to the central lobe of the prostate, measuring 3.7 x 2.5 centimeters, possible bladder malignancy. It continues to be slightly higher in density than the adjacent prostate. Recommended correlation with cystoscopy. There is no sign of pelvic or inguinal mass or adenopathy. There is no sign of free air or free fluid in the abdomen or pelvis. There continues to be mild linear atelectasis in the posterior right lung base. No change in the moderate L3 compression fracture with mild retropulsion of the posterior margin of L3 into the spinal canal. This appears to result in mild spinal stenosis. Probable fusion of L2 on L3 with partial absence of the anterior disc space. Stable rounded area of sclerosis in the anterior T11 vertebral body, worrisome for metastatic disease. Acute, transverse fracture of the basicervical right femoral neck with approximately 20 percent superior and anterior displacement of the femoral neck in relationship to the femoral head. There is prominent impaction of the femoral neck, and the fracture components are in mild varus. No sign of dislocation of the right femoral head. Normal appearance of the left hip. IMPRESSION: Acute, impacted, mildly displaced and mildly angulated subcapital fracture of the right hip. CT of the abdomen show stable appearance of multiple bilateral renal cysts, with a large cyst again seen arising from the lower pole of the left kidney. No change in what appear to be several adrenal adenomas on the right. 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 Please note that all CT scans at this facility use dose modulation, iterative reconstruction, and/or weight-based dosing when appropriate to reduce radiation dose to as low as reasonably achievable. Dictated by Sang Live MD @ Nov 08 2019 7:24PM Signed by Dr. Sang Live @ Nov 08 2019 7:42PM
[2019-11-08] MEDS: HYDROmorphone 0.5 MG/0.5 ML Syringe IVPUSH PRN (21:58)
[2019-11-08] MEDS: Sodium Chloride 0.9% 1,000 ML IV SCH (22:00)
[2019-11-08] MEDS: Pantoprazole 40 MG Tab.CR PO SCH (22:03)
[2019-11-08] MEDS: traZODone 50 MG Tab PO SCH (22:03)
[2019-11-08] MEDS: Mirtazapine 15 MG Tab PO SCH (22:03)
[2019-11-09] MEDS: HYDROmorphone 0.5 MG/0.5 ML Syringe IVPUSH PRN ×2 (01:05→08:47)
--- NOTE | 2019-11-09 03:39 | HP ---
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 CHIEF COMPLAINT: Staff reported subjective fever and chills with right lower abdominal pain. HISTORY OF PRESENT ILLNESS: Elderly male has a noted history of cognitive impairment secondary to moderate dementia. He is residing in the Memory Unit at [facility]. He was found by staff to be on the toilet today, complaining of pain at the right lower quadrant of the abdomen. No apparent injury was evident. Staff reported subjective fever and chilling without cough, congestion, shortness of breath, abdominal upset, or diarrhea. He is incontinent of urine with concerns of urinary tract infection raised. He was transferred to the emergency room for evaluation. Also, was noted to have complaints of pain and nonweightbearing with discomfort at the right inguinal crease. PAST MEDICAL HISTORY: In addition to dementia, he does have a reported history of GE reflux disease with dyspepsia and depressive disorder. Records indicate prior history of hypertension without current treatment. He does have hearing loss as well as impaired vision. Reports he wears glasses. Records indicate a remote history of DVT and accompanying pulmonary emboli, is not currently on antithrombotic therapies. HABITS: Remote history of tobacco use. He reports he does drink coffee, though is unable to quantify the volume. Denies current use of alcohol. IMMUNIZATIONS: Receives annual influenza vaccine at the [facility]. ALLERGIES: NONE NOTED. CURRENT MEDICATIONS: Mirtazapine 15 mg at bedtime, omeprazole 20 mg every evening, trazodone 50 mg at bedtime. SOCIAL HISTORY: Retired chiropractor. . Does have children living in the immediate vicinity. He has no behavioral disruption noted. FAMILY HISTORY: Unable to provide factual information. REVIEW OF SYSTEMS: NEUROLOGIC: Denies history of stroke. Does have cognitive impairment of Alzheimer's disease, depression, hearing loss and visual impairment. Ambulates independently without reports of recurring falls. CARDIAC: Reported past history of hypertension. Records suggest previous TIA without persistent neurologic deficit. No history of [place], chest pain, palpitations, or diabetes. RESPIRATORY: No history of obstructive pulmonary disease. He denies shortness of breath, cough, sputum production, or chest pain. GASTROINTESTINAL: No history of hepatitis, jaundice, abdominal upset, vomiting, melena, or hematochezia. GENITOURINARY: Incontinent of urine. Denies dysuria. MUSCULOSKELETAL: Pain at the right hip girdle reported by patient, nonweightbearing. PHYSICAL EXAMINATION: GENERAL: Appearance is that of an elderly, somnolent male, resting quietly in bed. Right leg is held in a slightly flexed externally rotated position at the hip. VITAL SIGNS: Initial vitals, temperature 98.5, pulse 99, respiratory rate 16, blood pressure 130/74, O2 saturations 92% on room air. HEENT: Hearing is diminished, though is able to engage in conversation. Right eye visual acuity shows adequate functional status. Old injury to the left eye is noted. He is edentulous. Denies presence of dentures. NECK: Brisk carotid pulses. No nuchal rigidity, stridor or adenopathy. LUNGS: Symmetrical, clear, non-tachypneic. No wheezes, rales, or rhonchi. No retractions. HEART: Regular without murmurs or gallops noted. Controlled rate. ABDOMEN: Soft, nondistended. No organomegaly. Active sounds. Good femoral pulses. No abdominal bruits or CVA pain. EXTREMITIES: Lower extremities, he has pitting edema at the right leg without evidence of involvement in the left. Posterior tibial and dorsal pedal pulses bilaterally are palpable. Brisk capillary refill. No cyanosis of the feet. No evidence of ecchymosis or bruising. No open ulcerations. Palpable tenderness at the right inguinal crease is noted. NEUROLOGIC: Oriented to person. Disoriented to place and time. Engages in conversation. Factual information that the patient is able to provide is limited. LABORATORY DATA: On admission, WBC 11.6, hemoglobin 15.9, platelet count 193,000. INR 0.98. Lipase 96. Sodium 140, potassium 4.2, BUN 11, creatinine 1.2, GFR 57, glucose 121, lactic acid 2.4, alkaline phosphatase 102, AST 28. Urinalysis, specific gravity of 1.020, positive proteinuria. Negative glucose, ketones, nitrites, bilirubin. Negative leukocyte esterase, 0 to 5 rbc's, 0 to [address] imaging of abdomen and pelvis reveals adenoma of the adrenal gland. Persistent benign cystic appearing lesions of the kidney. He has an irregular bladder mass at the urethral outlet, suspicious for potential primary bladder tumor and generalized prostatic enlargement. Additionally, a right subcapital femoral hip fracture is identified. IMPRESSION: 1. Right hip fracture. 2. Advanced Alzheimer's dementia. 3. Depressive disorder. 4. Hearing impairment. 5. Visual impairment. 6. Chronic suspected benign changes of the adrenal gland and kidneys on CT imaging. 7. Irregular mass of the bladder wall suggesting primary bladder tumor, cannot exclude malignant process. 8. Past history of deep venous thrombosis with pulmonary embolism. PLAN: With fracture identified, the patient is admitted for supportive care. We will initiate bedrest. Duvall catheter for drainage. IV fluids to maintain hydration and p.r.n. IV analgesic therapy. Family will discuss his hip fracture presentation and come to a consensus on decision to treat or provide comfort care only with return to detention setting, recognize that risk factors for poor outcome include advanced age, Alzheimer's dementia, and potential primary bladder cancer to be considered during familial discussion. In the interim, we will provide supportive cares. Followup labs with CBC, BMP, as well as 12-lead EKG are requested. COVID-19 screening is also requested in light of reports of fever identified in the detention facility. Triston Austin MD /[id number]
[2019-11-09] MEDS: Sodium Chloride 0.9% 1,000 ML IV SCH (07:26)
--- NOTE | 2019-11-09 09:10 | PN ---
DATE OF SERVICE: 11/09/2019 SUBJECTIVE: 84-year-old male with history of Alzheimer's dementia, currently residing at [facility], had an unwitnessed fall and resultant right subcapital hip fracture with displacement yesterday. He was transferred to the emergency room with complaints of right lower quadrant abdominal pain and reported fever with workup for acute infection being unremarkable. 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 Additionally, the femoral neck fracture was identified. He has rested comfortably through the night, sleeping intermittently. He has required Dilaudid on p.r.n. basis on a single episode through the nighttime hours. This morning, he is lying comfortably, denying pain. Offers no other new complaints. No cough, congestion, shortness of breath, or abdominal upset reported. OBJECTIVE: VITAL SIGNS: Temperature 38 degrees centigrade, pulse 92, blood pressure 127/70, respiratory rate 18. NECK: Brisk carotid pulses. No bruits, JVD, or stridor. LUNGS: Clear, symmetrical, non-tachypneic. HEART: Regular without gallops or murmurs. ABDOMEN: Soft, nondistended, nontender. No organomegaly. No guarding or rebound. Duvall catheter is in place with bloody urine noted to be draining into the collecting bag. EXTREMITIES: Right leg is held in a hip flexed position with external rotation consistent with noted fracture. Moderate dependent edema is evident. SKIN: Warm and pink, intact with good arterial pulses. LABORATORY DATA: A.m. labs including CBC and metabolic panel are pending this morning, COVID-19 screen is noted to be negative. IMPRESSION AND PLAN: 1. Right hip fracture. The family will need to be engaged in decision-making today, given the patient's history of Alzheimer's dementia. Options include surgical repair for management of fracture and pain in hopes of allowing roman catholic of ambulatory activities versus comfort care measures in the [facility] setting. If family desires surgical repair, we will consult Orthopedic Services. 2. Tumor suspected in the inferior wall of the bladder with hematuria noted on placement of Duvall catheter. Continue to monitor during hospital stay. If family desires further investigation, we will need to arrange for subsequent Urology consultation and probable cystoscopy. 3. Alzheimer's dementia. Mood is stable. No behavioral disruption. No restlessness or agitation. Triston Austin MD /[id number]
[2019-11-09] MEDS: Acetaminophen 325 MG Tab PO PRN ×2 (14:36→20:58)
[2019-11-09] MEDS: oxyCODONE 5 MG Tab PO PRN ×2 (14:36→20:58)
[2019-11-09] MEDS: traZODone 50 MG Tab PO SCH (20:59)
[2019-11-09] MEDS: Mirtazapine 15 MG Tab PO SCH (20:59)
[2019-11-09] MEDS: Pantoprazole 40 MG Tab.CR PO SCH (20:59)
[2019-11-09] MEDS ORDERED: Melatonin 3 MG Tab PO SCH (21:00)
[2019-11-10] MEDS: Acetaminophen 325 MG Tab PO PRN ×2 (02:36→09:45)
[2019-11-10] MEDS: oxyCODONE 5 MG Tab PO PRN ×2 (02:36→09:44)
[2019-11-10 10:19] VITALS: BP 135/82; PULSE 73
--- NOTE | 2019-11-10 10:51 | PCM.DCSUM1 ---
Discharge Summary - Hospital Course Brief History: 84-year-old male with moderate dementia and bladder mass concerning for bladder cancer who presented from the [facility] with abdominal pain, fever. Work-up in the emergency room did not reveal a cause for his fever or abdominal pain but did reveal a mildly displaced fracture involving the right femoral neck. He was admitted to the hospital for pain control and discussion about surgical versus nonsurgical management. Diagnosis: Stroke: No - Discharge Data Discharge Date: 11/10/19 Discharge Disposition: DC/Tfer to Hospice - Home Condition: Stable - Referral to Home Health Primary Care Physician: Sudhakar Rondon MD - Discharge Diagnosis/Problem(s) (1) Closed right hip fracture SNOMED Code(s): 140867223 ICD Code: S72.001A - FRACTURE OF UNSP PART OF NECK OF RIGHT FEMUR, INIT Status: Acute Qualifiers: Encounter type: initial encounter Qualified Code(s): S72.001A - Fracture of unspecified part of neck of right femur, initial encounter for closed fracture (2) Bladder mass SNOMED Code(s): 860002250 ICD Code: N32.89 - OTHER SPECIFIED DISORDERS OF BLADDER Status: Acute (3) Alzheimer disease SNOMED Code(s): 11718690 ICD Code: G30.9 - ALZHEIMER'S DISEASE, UNSPECIFIED Status: Chronic Qualifiers: Alzheimer's disease onset: late-onset Dementia behavioral disturbance: without behavioral disturbance Qualified Code(s): G30.1 - Alzheimer's disease with late onset; F02.80 - Dementia in other diseases classified elsewhere without behavioral disturbance - Patient Summary/Data Hospital Course: Art presented to the emergency room from his [facility] apartment with abdominal pain and fever. Laboratory work-up in the emergency room was fairly unremarkable. A CT scan of the abdomen and pelvis was undertaken and unfortunately did show a mildly displaced fracture involving the right femoral neck. It did redemonstrate the mass in the bladder concerning for bladder cancer which had been discovered about 1 month ago but unfortunately the patient had not made it to urology follow-up. He did have some hematuria in the emergency room when a Duvall catheter was placed. Initially the family was not quite sure if they were going to pursue surgical intervention or if they were again a transition to comfort cares. The patient was admitted to the hospital for symptomatic management and to allow the family time to decide the appropriate course of action. There were no acute events overnight following ad mission. The patient's pain was fairly well controlled with a combination of IV and oral medications. The day after admission the family decided that they were going to pursue a comfort based approach given his advanced Alzheimer's disease as well as the presumed underlying cancer with a bladder mass noted on the CT scan. The patient has been stable during the course of the hospital stay. The family was interested in having hospice on board to help manage his pain and other symptoms after his return to his memory care facility. He is stable and safe for transfer at this time. He will be transferred by ambulance home with hospice and additional services from his memory care unit. I believe he is an appropriate hospice candidate with several different medical issues going on including the presumed bladder cancer which she is not able to be worked up for as well as the new hip fracture which is going to be treated nonsurgically on top of his Alzheimer's disease which is progressing and he is incontinent of bowel and bladder on occasion and has a poor intake and decreasing functional status. - Patient Instructions Diet: Regular Diet as Tolerated Activity: Bedrest, Non Weight Bearing (right leg) Showering/Bathing: May Shower Notify Provider of: Increased Pain Other/Special Instructions: 1. You were in the hospital for evaluation of abdominal pain. We did not find a definite cause for the abdominal pain. We did find a closed right hip fracture with a CT scan of the abdomen and pelvis. The decision has been made to treat this nonoperatively with pain control. Because of the fracture you are not able to bear any weight on the right leg. We can use acetaminophen for mild pain and oxycodone for more intense pain. The decision has been made to transition to hospice care. They will meet you at your memory [facility] and assist the nursing staff to maximize pain control and comfort. 2. Continue your usual home medications as previously prescribed. 3. The CT scan did show evidence for a mass in your bladder. This is very c oncerning for bladder cancer. At this time the plan is for a transition to comfort based cares rather than aggressive work-up. - Discharge Plan *PRESCRIPTION DRUG MONITORING PROGRAM REVIEWED*: Not Applicable *COPY OF PRESCRIPTION DRUG MONITORING REPORT IN PATIENT VINCENT: Not Applicable Prescriptions/Med Rec: oxyCODONE 5 mg PO Q4H PRN #60 tablet PRN Reason: Pain Acetaminophen [Tylenol] 650 mg PO Q4H PRN #200 tablet PRN Reason: Pain/Fever Home Medications: Home Meds Mirtazapine [Remeron] 15 mg PO BEDTIME 09/19/19 [History] Omeprazole 20 mg PO BEDTIME 09/19/19 [History] traZODone HCl [Trazodone HCl] 50 mg PO BEDTIME 09/19/19 [History] Acetaminophen [Tylenol] 650 mg PO Q4H PRN #200 tablet 11/10/19 [Rx] oxyCODONE 5 mg PO Q4H PRN #60 tablet 11/10/19 [Rx] Oxygen Therapy Mode: Room Air Patient Handouts: Oxycodone tablets or capsules, Hip Fracture Referrals: Sudhakar Rondon MD [Primary Care Provider] - - Discharge Summary/Plan Comment DC Time >30 min.: Yes (35-hospice discharge ) - Patient Data Vitals - Most Recent: Last Vital Signs Temp 37.0 C 11/10/19 10:18 Pulse 73 11/10/19 10:18 Resp 18 11/10/19 10:18 BP 135/82 11/10/19 10:18 Pulse Ox 92 L 11/10/19 10:18 Weight - Most Recent: 88.451 kg I&O - Last 24 hours: Intake & Output 11/09/19 11/10/19 11/10/19 22:59 06:59 14:59 Intake Total 240 90 120 Output Total 600 500 Balance -360 -410 120 Med Orders - Current: Current Medications Acetaminophen (Tylenol) 650 mg PO Q4H PRN PRN Reason: Pain/Fever Last Admin: 11/10/19 09:45 Dose: 650 mg Documented by: Hydromorphone HCl (Dilaudid) 0.5 mg IVPUSH Q2H PRN PRN Reason: Pain Last Admin: 11/09/19 08:47 Dose: 0.5 mg Documented by: Iopamidol (Isovue-300 (61%)) 100 ml IV . DIRECTED WINDY Last Admin: 11/08/19 18:51 Dose: 100 ml Documented by: Melatonin (Melatonin) 9 mg PO BEDTIME [facility] Last Admin: 11/09/19 20:59 Dose: 9 mg Documented by: Mirtazapine (Remeron) 15 mg PO BEDTIME [facility] Last Admin: 11/09/19 20:59 Dose: 15 mg Documented by: Oxycodone HCl (Oxycodone) 5 mg PO Q4H PRN PRN Reason: Pain (moderate 4-6) Last Admin: 11/10/19 09:44 Dose: 5 mg Documented by: Pantoprazole Sodium (Protonix) 40 mg PO BEDTIME [facility] Last Admin: 11/09/19 20:59 Dose: 40 mg Documented by: Trazodone HCl (Trazodone) 50 mg PO BEDTIME [facility] Last Admin: 11/09/19 20:59 Dose: 50 mg Documented by: Discontinued Medications Hydromorphone HCl (Dilaudid) 0.5 mg IVPUSH ONETIME ONE Stop: 11/08/19 17:28 Last Admin: 11/08/19 18:18 Dose: 0.5 mg Documented by: Sodium Chloride (Normal Saline) 1,000 mls @ 500 mls/hr IV ASDIRECTED [facility] Last Admin: 11/08/19 18:16 Dose: 500 mls/hr Documented by: Sodium Chloride (Normal Saline) 80 mls @ 3.5 mls/sec IV ASDIRECTED [facility] Last Admin: 11/08/19 18:51 Dose: 3.5 mls/sec Documented by: Sodium Chloride (Normal Saline) 1,000 mls @ 100 mls/hr IV ASDIRECTED [facility] Last Admin: 11/09/19 07:26 Dose: 100 mls/hr Documented by: Ondansetron HCl (Zofran) 4 mg IVPUSH ONETIME ONE Stop: 11/08/19 17:28 Last Admin: 11/08/19 18:17 Dose: 4 mg Documented by:
== END 2019-11-10 13:05 | disposition hospice, home (50) | DRG 536 ==
LOC: JP.ED 17:00 → JP.MS 20:12
PROVIDERS: ADMIT Family Medicine; ATTEND Internal Medicine
DX: N32.9 Bladder disorder, unspecified (principal); S72.001A Fracture of unspecified part of neck of right femur, initial encounter for closed fracture; C67.9 Malignant neoplasm of bladder, unspecified; G30.1 Alzheimer's disease with late onset; I10 Essential (primary) hypertension; F02.80 Dementia in other diseases classified elsewhere, unspecified severity, without behavioral disturbance, psychotic disturbance, mood disturbance, and anxiety; G30.9 Alzheimer's disease, unspecified; Z51.5 Encounter for palliative care; K21.9 Gastro-esophageal reflux disease without esophagitis; Z20.828 Contact with and (suspected) exposure to other viral communicable diseases; F32.9 Major depressive disorder, single episode, unspecified; F41.9 Anxiety disorder, unspecified; H91.90 Unspecified hearing loss, unspecified ear; Z79.899 Other long term (current) drug therapy; Z86.711 Personal history of pulmonary embolism; Z86.718 Personal history of other venous thrombosis and embolism; H54.7 Unspecified visual loss; Z86.73 Personal history of transient ischemic attack (TIA), and cerebral infarction without residual deficits
CPT/HCPCS: 36415; 74177; 80053; 81001; 83605; 83690; 85027; 85610; 96361; 96374; 96375; 99285; J1170; J2405; J7030; J7050; Q9967; 51702; 80048; 93010; 96376; A9270-GY; U0002